=== PATIENT | female | born 1985 | race American Indian/Alaskan Native ===

== ENCOUNTER 2018-08-20 03:54 | Emergency (ER) | payer OTHER ==
--- NOTE | 2018-08-20 04:19 | Emergency Department Report ---
<JANN MADSEN - Last Filed: 08/20/18 04:14> ED Lower Extremity HPI - General Chief Complaint: Extremity Injury, Lower Stated Complaint: RT LEG PAIN AND HIP PAIN Time Seen by Provider: 08/20/18 04:14 Source: patient Mode of arrival: Ambulatory Limitations: No Limitations - History of Present Illness Initial Comments: This is a 33-year-old -[place] female who presents with right hip pain that is radiating down leg since yesterday. Patient reports pain has increased over the past 24 hours. She reports pain is worse with walking or movement. Patient reports pain is 7 out of 10 on pain scale and a burning sharp sensation. She states she has taken Motrin with no improvement of symptoms. She denies recent injury, numbness or tingling, swelling, paresthesias, warmth to the area, or bruising. MD Complaint: hip injury (right) Onset/Timin -: days(s) Injury: Hip: Right Type of Injury: unknown Place: home Severity: moderate Severity scale (0 -10): 7 Improves With: nothing Worsens With: weight bearing, movement Context: walking Associated Symptoms: able to partially bear weight, ambulatory Treatments Prior to Arrival: NSAIDS - Related Data Previous Rx's Medication Instructions Recorded Last Taken Type Ibuprofen [Motrin 800 MG tab] 800 mg PO Q8HR PRN #15 tablet 08/20/18 Unknown Rx Allergies Allergy/AdvReac Type Severity Reaction Status Date / Time No Known Allergies Allergy Verified 08/20/18 04:01 ED Review of Systems Constitutional: denies: chills, fever Respiratory: denies: cough, shortness of breath, wheezing Cardiovascular: denies: chest pain, palpitations Gastrointestinal: denies: abdominal pain, nausea, diarrhea Musculoskeletal: arthralgia (right hip pain). denies: back pain, joint swelling Skin: denies: rash, lesions Neurological: denies: headache, weakness, paresthesias Psychiatric: denies: anxiety, depression ED Past Medical Hx - Past Medical History Previous Medical History?: Yes Hx Hypertension: Yes - Surgical History Past Surgical History?: No - Social History Smoking Status: Never Smoker Substance Use Type: None - Medications Home Medications: Home Medications Medication Instructions Recorded Confirmed Last Taken Type Ibuprofen [Motrin 800 MG tab] 800 mg PO Q8HR PRN #15 tablet 08/20/18 Unknown Rx ED Physical Exam - General Limitations: No Limitations General appearance: alert, in no apparent distress, obese - Respiratory Respiratory exam: Present: normal lung sounds bilaterally. Absent: respiratory distress - Cardiovascular Cardiovascular Exam: Present: regular rate, normal rhythm. Absent: systolic murmur, diastolic murmur, rubs, gallop - GI/Abdominal GI/Abdominal exam: Present: soft, normal bowel sounds - Expanded Lower Extremity Exam Right Hip exam: Present: full ROM (pain with range of motion). Absent: tenderness, swelling, abrasion, laceration, ecchymosis, deformity, crepidus, dislocation, erythema, external rotation, internal rotation, shortening, pelvic stability Upper Leg exam: Present: normal inspection, full ROM Knee exam: Present: normal inspection, full ROM Lower Leg exam: Present: normal inspection, full ROM Foot/Toe exam: Present: normal inspection, full ROM Neuro vascular tendon exam: Present: no vascular compromise Gait: Positive: observed and limited by pain - Back Exam Back exam: Present: normal inspection - Neurological Exam Neurological exam: Present: alert, oriented X3 - Psychiatric Psychiatric exam: Present: normal affect, normal mood - Skin Skin exam: Present: warm, dry, intact, normal color. Absent: rash ED Disposition Clinical Impression: Strain of right hip adductor muscle Qualifiers: Encounter type: initial encounter Qualified Code(s): S76.011A - Strain of muscle, fascia and tendon of right hip, initial encounter Disposition: TO HOME OR SELFCARE Condition: Stable Instructions: Muscle Strain (ED) Additional Instructions: Please take pain medication as prescribed. Follow-up with her primary care provider if his symptoms persist or gets worse. Prescriptions: Ibuprofen [Motrin 800 MG tab] 800 mg PO Q8HR PRN #15 tablet PRN Reason: Pain , Severe (7-10) Referrals: Your, PCP [Other] - 3-5 Days <JAYLEEN HICKEY - Last Filed: 08/20/18 06:05> ED Lower Extremity HPI - History of Present Illness Initial Comments: Patient reports that she had increase exercising last week and started having hip pain yesterday. Patient denies any lower back pain denies any urinary symptoms. Patient does report she has a primary care provider at [place] [facility]. Patient reports that she took ibuprofen prior to arrival without much improvement. She denies any trauma. ED Review of Systems ROS: Stated complaint: RT LEG PAIN AND HIP PAIN Other details as noted in HPI ED Course Vital Signs 08/20/18 03:56 Temperature 97.8 F Pulse Rate 69 Respiratory 18 Rate Blood Pressure 130/82 O2 Sat by Pulse 100 Oximetry ED Lower Extremity MDM - Radiology Data Radiology results: report reviewed Patient: ALFONSO RNAGEL MR#: [id number] : 1985 Acct:[id number] Age/Sex: 33 / F ADM Date: 08/20/18 Loc: ED Attending Dr: Ordering Physician: NEGRA VALLE Date of Service: 08/20/18 Procedure(s): XR hip 2-3V RT Accession Number(s): [id number] cc: NEGRA VALLE Fluoro Time In Minutes: PROCEDURE: XR HIP 2-3V RT TECHNIQUE: Pelvis radiograph, one view. HISTORY: right hip pain COMPARISONS: None FINDINGS: Fracture(s): None Joint spaces: Normal Soft tissues: Normal Foreign bodies: None Bone mineralization: Normal IMPRESSION: Normal Examination This document is electronically signed by Silvia Morgan DO., August 20 2018 05:27:16 AM ET Transcribed By: [facility] Dictated By: SILVIA MORGAN MD Electronically Authenticated By: SILVIA MORGAN MD Signed Date/Time: 08/20/18 0570 Critical care attestation.: If time is entered above; I have spent that time in minutes in the direct care of this critically ill patient, excluding procedure time. ED Disposition Is pt being admited?: No Does the pt Need Aspirin: No
--- NOTE | 2018-08-20 05:29 | XRay Report ---
PROCEDURE: XR HIP 2-3V RT TECHNIQUE: Pelvis radiograph, one view. HISTORY: right hip pain COMPARISONS: None FINDINGS: Fracture(s): None Joint spaces: Normal Soft tissues: Normal Foreign bodies: None Bone mineralization: Normal IMPRESSION: Normal Examination This document is electronically signed by Silvia Morgan DO., August 20 2018 05:27:16 AM ET
[2018-08-20 05:59] VITALS: BP 113/70
== END 2018-08-20 06:06 | disposition home or self-care (01) ==
LOC: ED 03:54
DX: S76.011A Strain of muscle, fascia and tendon of right hip, initial encounter (principal); I10 Essential (primary) hypertension; X58.XXXA Exposure to other specified factors, initial encounter; Y93.89 Activity, other specified; Y92.009 Unspecified place in unspecified non-institutional (private) residence as the place of occurrence of the external cause; Y99.8 Other external cause status

== ENCOUNTER 2018-08-27 20:09 | Emergency (ER) | payer OTHER ==
[2018-08-27 21:14] LABS: Basophils # (Auto) 0.1 K/mm3 (0.0-0.1); Basophils % (Auto) 0.7 % (0.0-1.8); Eosinophils # (Auto) 0.1 K/mm3 (0.0-0.4); Eosinophils % (Auto) 0.7 % (0.0-4.3); Hematocrit 41.3 % (30.3-42.9); Hemoglobin 13.7 gm/dl (10.1-14.3); Lymphocytes # (Auto) 2.2 K/mm3 (1.2-5.4); Lymphocytes % (Auto) 27.8 % (13.4-35.0); Mean Corpuscular HGB Conc 33 % (30-34); Mean Corpuscular Volume 89 fl (79-97); Monocytes # (Auto) 0.4 K/mm3 (0.0-0.8); Platelet Count 342 K/mm3 (140-440); Red Blood Count 4.66 M/mm3 (3.65-5.03); Red Cell Distribution Width 14.3 % (13.2-15.2)
--- NOTE | 2018-08-27 23:13 | XRay Report ---
PROCEDURE: XR CHEST 1V AP TECHNIQUE: AP view of the chest HISTORY: Chest Pain COMPARISONS: None FINDINGS: Cardiomediastinal silhouette is within normal limits. No pulmonary infiltrate, effusion, or pneumotho rax is seen. No acute osseous abnormality is seen. IMPRESSION: No radiographic evidence of acute abnormality. This document is electronically signed by Katherine Ferrer MD., August 27 2018 11:11:24 PM ET
[2018-08-27 23:25] LABS: BUN/Creatinine Ratio 14; Blood Urea Nitrogen 15 mg/dL (7-17); Calcium 10.3 mg/dL (8.4-10.2); Hemolysis Index 7
--- NOTE | 2018-08-28 02:34 | Emergency Department Report ---
ED General Adult HPI - General Chief complaint: Dizziness Stated complaint: DIZZINESS/HIGH BP Time Seen by Provider: 08/28/18 02:26 Source: patient Mode of arrival: Ambulatory Limitations: No Limitations - History of Present Illness Initial comments: 33-year-old female with a history of hypertension presents with a complaint of dizziness. Patient denies any syncopal events. Patient denies any chest pain. Patient denies any focal weakness and slurred speech. Patient states her blood pressure was slightly elevated while at the fire station. Patient states he is noncompliant with her hydrochlorothiazide therapy. Severity scale (0 -10): 3 - Related Data Previous Rx's Medication Instructions Recorded Last Taken Type Ibuprofen [Motrin 800 MG tab] 800 mg PO Q8HR PRN #15 tablet 08/20/18 Unknown Rx Tramadol HCl [Ultram] 50 mg PO Q6HR #20 tablet 08/28/18 Unknown Rx Allergies Allergy/AdvReac Type Severity Reaction Status Date / Time No Known Allergies Allergy Verified 08/20/18 04:01 ED Review of Systems ROS: Stated complaint: DIZZINESS/HIGH BP Other details as noted in HPI Constitutional: denies: chills, fever Eyes: denies: eye pain, eye discharge, vision change ENT: denies: ear pain, throat pain Respiratory: denies: cough, shortness of breath, wheezing Cardiovascular: denies: chest pain, palpitations Endocrine: no symptoms reported Gastrointestinal: denies: abdominal pain, nausea, diarrhea Genitourinary: denies: urgency, dysuria, discharge Musculoskeletal: denies: back pain, joint swelling, arthralgia Skin: denies: rash, lesions Neurological: other (dizziness). denies: headache, weakness, paresthesias Psychiatric: denies: anxiety, depression Hematological/Lymphatic: denies: easy bleeding, easy bruising ED Past Medical Hx - Past Medical History Previous Medical History?: Yes Hx Hypertension: Yes - Surgical History Past Surgical History?: No - Social History Smoking Status: Never Smoker Substance Use Type: None - Medications Home Medications: Home Medications Medication Instructions Recorded Confirmed Last Taken Type Ibuprofen [Motrin 800 MG tab] 800 mg PO Q8HR PRN #15 tablet 08/20/18 Unknown Rx Tramadol HCl [Ultram] 50 mg PO Q6HR #20 tablet 08/28/18 Unknown Rx ED Physical Exam - General Limitations: No Limitations General appearance: alert, in no apparent distress - Head Head exam: Present: atraumatic, normocephalic - Eye Eye exam: Present: normal appearance - ENT ENT exam: Present: mucous membranes moist - Neck Neck exam: Present: normal inspection - Respiratory Respiratory exam: Present: normal lung sounds bilaterally. Absent: respiratory distress - Cardiovascular Cardiovascular Exam: Present: regular rate, normal rhythm. Absent: systolic murmur, diastolic murmur, rubs, gallop - GI/Abdominal GI/Abdominal exam: Present: soft, normal bowel sounds - Extremities Exam Extremities exam: Present: normal inspection - Back Exam Back exam: Present: normal inspection - Neurological Exam Neurological exam: Present: alert, oriented X3 - Psychiatric Psychiatric exam: Present: normal affect, normal mood - Skin Skin exam: Present: warm, dry, intact, normal color. Absent: rash ED Course Vital Signs 08/27/18 08/27/18 23:02 23:04 Pulse Rate 63 Respiratory 18 16 Rate Blood Pressure 144/64 [Left] O2 Sat by Pulse 98 98 Oximetry ED Medical Decision Making - Lab Data Result diagrams: 08/27/18 20:42 08/27/18 22:09 - EKG Data -: EKG Interpreted by Nv EKG shows normal: sinus rhythm Rate: normal - Medical Decision Making Patient's blood pressure has improved. Patient's and upright comfortable. Patient received Tylenol for headache. Patient to be discharged to follow up with PCP. - Differential Diagnosis STEMI; NSTEMI; electrolyte imbalance;anemia; ppneumonai Critical care attestation.: If time is entered above; I have spent that time in minutes in the direct care of this critically ill patient, excluding procedure time. ED Disposition Clinical Impression: Dizziness, Hypertension Disposition: DC-01 TO HOME OR SELFCARE Is pt being admited?: No Does the pt Need Aspirin: No Condition: Stable Instructions: Hypertension (ED) Prescriptions: Tramadol HCl [Ultram] 50 mg PO Q6HR #20 tablet Referrals: KENYATAT MCKAY MD [Primary Care Provider] - 3-5 Days Time of Disposition: 03:14 Print Language: SYRIAC
[2018-08-28] MEDS ORDERED: TYLENOL PO ONE (02:42)
[2018-08-28 03:51] VITALS: BP 136/85
== END 2018-08-28 03:49 | disposition home or self-care (01) ==
LOC: ED 20:09
DX: I10 Essential (primary) hypertension (principal)
CPT/HCPCS: 36415; 71045; 80048; 84484; 85025; 93005; 93010

== ENCOUNTER 2018-09-05 21:39 | Emergency (ER) | payer OTHER ==
[2018-09-05 23:02] LABS: Basophils # (Auto) 0.1 K/mm3 (0.0-0.1); Eosinophils % (Auto) 0.4 % (0.0-4.3); Hematocrit 38.5 % (30.3-42.9); Hemoglobin 13.3 gm/dl (10.1-14.3); Lymphocytes # (Auto) 2.2 K/mm3 (1.2-5.4); Lymphocytes % (Auto) 26.5 % (13.4-35.0); Mean Corpuscular HGB Conc 35 % (30-34); Mean Corpuscular Volume 87 fl (79-97); Monocytes # (Auto) 0.4 K/mm3 (0.0-0.8); Monocytes % (Auto) 5.1 % (0.0-7.3); Platelet Count 351 K/mm3 (140-440); Red Blood Count 4.44 M/mm3 (3.65-5.03); Red Cell Distribution Width 14.1 % (13.2-15.2)
[2018-09-05 23:14] LABS: BUN/Creatinine Ratio 14; Blood Urea Nitrogen 14 mg/dL (7-17); Calcium 9.9 mg/dL (8.4-10.2); Hemolysis Index 8
--- NOTE | 2018-09-06 01:43 | Emergency Department Report ---
ED Chest Pain HPI - General Chief Complaint: Chest Pain Stated Complaint: ?BLOOD PRESSURE/FATIGUE/CHEST HEAVY Time Seen by Provider: 09/06/18 01:26 Source: patient Mode of arrival: Ambulatory Limitations: No Limitations - History of Present Illness Initial Comments: Pt is a 33 yo female who presents to the ED with c/o chest heaviness that began yesterday. She has associated SOB and palpitations. She was diagnosed with anxiety two weeks ago by her PCP and was given vistaril she states that she does not like to take it. She states these sx feel similar to her anxiety. She denies any N/V, radiation of the pain, unilateral LE edema. She has a hx of HTN and takes hctz. She denies any hx of smoking, cardiac hx, or hx of DM. She denies any family cardiac hx. She denies any OCP use, long car or plane ride, recent surgery, recent immobilization. She denies any hx of GERD. Severity scale (0 -10): 7 - Related Data Previous Rx's Medication Instructions Recorded Last Taken Type hydrOXYzine PAMOATE [Vistaril] 25 mg PO Q6HR PRN #20 capsule 09/02/18 Unknown Rx Allergies Allergy/AdvReac Type Severity Reaction Status Date / Time No Known Allergies Allergy Verified 08/20/18 04:01 Heart Score - HEART Score History: Slightly suspicious EKG: Normal Age: < 45 Risk factors: 1-2 risk factors Troponin: < normal limit HEART Score: 1 ED Review of Systems ROS: Stated complaint: ?BLOOD PRESSURE/FATIGUE/CHEST HEAVY Other details as noted in HPI Comment: All other systems reviewed and negative ED Past Medical Hx - Past Medical History Previous Medical History?: Yes Hx Hypertension: Yes - Surgical History Past Surgical History?: Yes Additional Surgical History: Tubal ligation - Social History Smoking Status: Never Smoker Substance Use Type: None - Medications Home Medications: Home Medications Medication Instructions Recorded Confirmed Last Taken Type hydrOXYzine PAMOATE [Vistaril] 25 mg PO Q6HR PRN #20 capsule 09/02/18 Unknown Rx ED Physical Exam - General Limitations: No Limitations General appearance: alert, in no apparent distress - Head Head exam: Present: atraumatic, normocephalic - Eye Eye exam: Present: normal appearance - ENT ENT exam: Present: mucous membranes moist - Respiratory Respiratory exam: Present: normal lung sounds bilaterally. Absent: respiratory distress, wheezes, rales, rhonchi, stridor, chest wall tenderness, accessory muscle use, decreased breath sounds, prolonged expiratory - Cardiovascular Cardiovascular Exam: Present: regular rate, normal rhythm, normal heart sounds. Absent: systolic murmur, rubs, gallop - Neurological Exam Neurological exam: Present: alert, oriented X3 - Psychiatric Psychiatric exam: Present: normal affect, anxious (mildly ) - Skin Skin exam: Present: warm, dry, intact ED Course Vital Signs 09/05/18 09/05/18 09/05/18 21:47 21:53 22:31 Temperature 97.6 F 98 F Pulse Rate 92 H 94 H Respiratory 18 18 Rate Blood Pressure 136/93 114/84 Blood Pressure [Left] O2 Sat by Pulse 100 100 Oximetry 09/06/18 09/06/18 03:00 03:08 Temperature Pulse Rate 77 90 Respiratory 15 18 Rate Blood Pressure Blood Pressure 128/91 [Left] O2 Sat by Pulse 99 100 Oximetry ELBERT score - Elbert Score Age > 65: (0) No Aspirin use within the Past 7 Days: (0) No 3 or more CAD Risk Factors: (0) No 2 or more Angina events in past 24 hrs: (0) No Known CAD with more than 50% Stenosis: (0) No Elevated Cardiac Markers: (0) No ST Deviation Greater than 0.5mm: (0) No ELBERT Score: 0 ED Medical Decision Making - Lab Data Result diagrams: 09/05/18 22:41 09/05/18 22:41 Lab Results 09/05/18 09/05/18 09/05/18 Range/Units 22:41 22:41 22:41 WBC 8.1 (4.5-11.0) K/mm3 RBC 4.44 (3.65-5.03) M/mm3 Hgb 13.3 (10.1-14.3) gm/dl Hct 38.5 (30.3-42.9) % MCV 87 (79-97) fl MCH 30 (28-32) pg MCHC 35 H (30-34) % RDW 14.1 (13.2-15.2) % Plt Count 351 (140-440) K/mm3 Lymph % (Auto) 26.5 (13.4-35.0) % Dickinson % (Auto) 5.1 (0.0-7.3) % Eos % (Auto) 0.4 (0.0-4.3) % Baso % (Auto) 1.0 (0.0-1.8) % Lymph # 2.2 (1.2-5.4) K/mm3 Dickinson # 0.4 (0.0-0.8) K/mm3 Eos # 0.0 (0.0-0.4) K/mm3 Baso # 0.1 (0.0-0.1) K/mm3 Seg Neutrophils % 67.0 (40.0-70.0) % Seg Neutrophils # 5.5 (1.8-7.7) K/mm3 Sodium 135 L (137-145) mmol/L Potassium 3.7 (3.6-5.0) mmol/L Chloride 95.5 L (98-107) mmol/L Carbon Dioxide 24 (22-30) mmol/L Anion Gap 19 mmol/L BUN 14 (7-17) mg/dL Creatinine 1.0 (0.7-1.2) mg/dL Estimated GFR > 60 ml/min BUN/Creatinine Ratio 14 % Glucose 97 (65-100) mg/dL Calcium 9.9 (8.4-10.2) mg/dL Troponin T < 0.010 (0.00-0.029) ng/mL HCG, Qual Negative (Negative) - EKG Data -: EKG Interpreted by Ma EKG shows normal: sinus rhythm, axis, intervals, QRS complexes, ST-T waves Rate: normal - Radiology Data Radiology results: report reviewed PROCEDURE: XR CHEST ROUTINE 2V TECHNIQUE: PA and lateral chest radiographs were obtained. HISTORY: cp COMPARISONS: August 27, 2018. FINDINGS: Heart: Normal. Mediastinum/Vessels: Normal. Lungs/Pleural space: Normal. Bony thorax: No acute osseous abnormality. IMPRESSION: Normal examination. This document is electronically signed by Silvia Morgan DO., September 06 2018 02:35:08 AM ET - Medical Decision Making Pt is a 33 yo female who presents to the ED with c/o chest heaviness that began yesterday. She has associated SOB and palpitations. She was diagnosed with anxiety two weeks ago by her PCP and was given vistaril she states that she does not like to take it. She states these sx feel similar to her anxiety. She denies any N/V, radiation of the pain, unilateral LE edema. She has a hx of HTN and takes hctz. She denies any hx of smoking, cardiac hx, or hx of DM. She denies any family cardiac hx. She denies any OCP use, long car or plane ride, recent surgery, recent immobilization. She denies any hx of GERD. EKG is normal. CXR with no acute process. Trop negative x2. VSS. CP does not appear to be cardiac in nature. pt only cardiac risk factor is HTN. no PE/DVT risk factors. Symptoms appear to be consistent with her anxiety. Advised pt to follow up with her PCP for further management of her anxiety and adjustement of her medications. Discussed return to the ED for any new or worsening symptoms. - Differential Diagnosis anxiety, GERD, SC, PTX, costochondritis, musculoskeletal pain Critical care attestation.: If time is entered above; I have spent that time in minutes in the direct care of this critically ill patient, excluding procedure time. ED Disposition Clinical Impression: Anxiety Disposition: DC-01 TO HOME OR SELFCARE Is pt being admited?: No Does the pt Need Aspirin: No Condition: Stable Instructions: Anxiety (ED) Additional Instructions: Follow up with your primary care doctor in the next 2-3 days to discuss your anxiety medication. Return to the emergency room for any new or worsening symptoms. Referrals: KENYATTA MCKAY MD [Primary Care Provider] - 2-3 Days Time of Disposition: 02:53 Print Language: DIVEHI
--- NOTE | 2018-09-06 02:36 | XRay Report ---
PROCEDURE: XR CHEST ROUTINE 2V TECHNIQUE: PA and lateral chest radiographs were obtained. HISTORY: cp COMPARISONS: August 27, 2018. FINDINGS: Heart: Normal. Mediastinum/Vessels: Normal. Lungs/Pleural space: Normal. Bony thorax: No acute osseous abnormality. IMPRESSION: Normal examination. This document is electronically signed by Silvia Morgan DO., September 06 2018 02:35:08 AM ET
[2018-09-06] MEDS ORDERED: TYLENOL PO ONE (02:51)
[2018-09-06 03:10] VITALS: BP 128/91
== END 2018-09-06 03:00 | disposition home or self-care (01) ==
LOC: ED 21:39
DX: F41.9 Anxiety disorder, unspecified (principal); I10 Essential (primary) hypertension; Z98.51 Tubal ligation status
CPT/HCPCS: 36415; 71046; 80048; 84484; 84703; 85025; 93005; 93010

== ENCOUNTER 2018-09-23 20:54 | Emergency (ER) | payer OTHER ==
[2018-09-24 19:46] VITALS: BP 117/76
== END 2018-09-23 21:20 | disposition left against medical advice (07) ==
LOC: ED 20:54
DX: R06.02 Shortness of breath (principal); Z53.21 Procedure and treatment not carried out due to patient leaving prior to being seen by health care provider
CPT/HCPCS: 93005; 93010

== ENCOUNTER 2018-10-06 21:50 | Emergency (ER) | payer SELFPAY ==
[2018-10-06 21:58] VITALS: BP 117/85
--- NOTE | 2018-10-06 22:05 | Emergency Department Report ---
Blank Doc - Documentation Documentation: 33 y/o female comes in for headache for 2 hours. Went to the fire station and had blood pressure check was reported high. Hx/o of HTN on HCTZ 25 mg daily.
== END 2018-10-07 03:12 | disposition left against medical advice (07) ==
LOC: ED 21:50
DX: R42 Dizziness and giddiness (principal); Z53.21 Procedure and treatment not carried out due to patient leaving prior to being seen by health care provider

== ENCOUNTER 2018-10-14 22:39 | Emergency (ER) | payer OTHER ==
[2018-10-14 22:47] VITALS: BP 112/75
[2018-10-14 23:50] LABS: Basophils % (Auto) 0.5 % (0.0-1.8); Eosinophils # (Auto) 0.1 K/mm3 (0.0-0.4); Eosinophils % (Auto) 0.7 % (0.0-4.3); Hematocrit 36.5 % (30.3-42.9); Hemoglobin 12.2 gm/dl (10.1-14.3); Lymphocytes # (Auto) 2.2 K/mm3 (1.2-5.4); Lymphocytes % (Auto) 30.3 % (13.4-35.0); Mean Corpuscular HGB Conc 33 % (30-34); Mean Corpuscular Volume 88 fl (79-97); Monocytes # (Auto) 0.5 K/mm3 (0.0-0.8); Monocytes % (Auto) 6.6 % (0.0-7.3); Platelet Count 357 K/mm3 (140-440); Red Blood Count 4.14 M/mm3 (3.65-5.03); Red Cell Distribution Width 14.9 % (13.2-15.2)
[2018-10-15 00:14] LABS: Blood Urea Nitrogen 20 mg/dL (7-17); Calcium 9.6 mg/dL (8.4-10.2); Hemolysis Index 13
[2018-10-15 00:22] LABS: BUN/Creatinine Ratio 22
== END 2018-10-15 01:50 | disposition left against medical advice (07) ==
LOC: ED 22:39
DX: R06.02 Shortness of breath (principal); Z53.21 Procedure and treatment not carried out due to patient leaving prior to being seen by health care provider
CPT/HCPCS: 36415; 80048; 84484; 84703; 85025; 93005; 93010

== ENCOUNTER 2018-10-15 15:22 | Emergency (ER) | payer SELFPAY ==
[2018-10-15 16:17] VITALS: BP 110/74
--- NOTE | 2018-10-15 16:20 | Emergency Department Report ---
Chief Complaint: Chest Pain Stated Complaint: CHEST PAIN/SOB Time Seen by Provider: 10/15/18 16:15 - HPI History of Present Illness: co cp as she points to her epigastric area 8th time here in ER this year for similar has pcp pmh anxiety on celexa sees pcp in am for ultrasound of cyst behind leg and red clifford on feet see labs from prior visits no periods- tubal 06/29 lmp sees fertility MD for estrogen and prog. she stopped them in may mse completed MSE screening note: Focused history and physical exam performed. Due to findings the following was ordered: ED Disposition for MSE Condition: Stable
== END 2018-10-15 16:30 | disposition left against medical advice (07) ==
LOC: ED 15:22
DX: R07.89 Other chest pain (principal); R06.02 Shortness of breath; Z53.21 Procedure and treatment not carried out due to patient leaving prior to being seen by health care provider
CPT/HCPCS: 93005; 93010

== ENCOUNTER 2018-10-21 18:57 | Emergency (ER) | payer OTHER ==
[2018-10-21 19:21] VITALS: BP 122/78
--- NOTE | 2018-10-21 20:04 | Emergency Department Report ---
ED General Adult HPI - General Stated complaint: WEAKNESS Time Seen by Provider: 10/21/18 20:00 Source: patient, EMS Mode of arrival: Ambulatory Limitations: No Limitations - History of Present Illness Initial comments: pt is a 33-year-old -[place] female with history of depression on Celexa states she takes 10 mg today however she took one earlier this morning and felt that she took an Ativan 2 hours later then began to feel weakness and fatigue there is no nausea vomiting no dizziness no lightheadedness patient did not have a syncopal episode patient is alert and oriented at this time patient is in with her mentation is at baseline just wanted to come and get checked out patient denies weakness denies vomiting denies chest pain or shortness of breath no diaphoresis no, Onset/Timin -: days(s) Radiation: non-radiation Severity scale (0 -10): 2 Quality: other (generalized weakness ) Consistency: constant Improves with: none, rest Worsens with: none Associated Symptoms: weakness. denies: chest pain, cough, diaphoresis, fever/chills, headaches, loss of appetite, malaise, nausea/vomiting, rash, seizure, shortness of breath, syncope Treatments Prior to Arrival: none - Related Data Previous Rx's Medication Instructions Recorded Last Taken Type hydrOXYzine PAMOATE [Vistaril] 25 mg PO Q6HR PRN #20 capsule 09/02/18 Unknown Rx diphenhydrAMINE [Benadryl CAP] 25 mg PO Q6HR PRN #30 capsule 10/21/18 Unknown Rx Allergies Allergy/AdvReac Type Severity Reaction Status Date / Time No Known Allergies Allergy Verified 10/15/18 15:24 ED Review of Systems ROS: Stated complaint: WEAKNESS Other details as noted in HPI Constitutional: denies: chills, fever Eyes: denies: eye pain, eye discharge, vision change ENT: denies: ear pain, throat pain, dental pain, hearing loss, epistaxis, congestion Respiratory: see HPI, SOB with exertion. denies: cough, shortness of breath, wheezing Cardiovascular: denies: chest pain, palpitations, dyspnea on exertion, paroxy smal nocturnal dyspnea Endocrine: no symptoms reported Gastrointestinal: denies: abdominal pain, nausea, vomiting, diarrhea, constipation, hematemesis Genitourinary: denies: urgency, dysuria, frequency, hematuria, discharge, dyspareunia Musculoskeletal: denies: back pain, joint swelling, arthralgia, myalgia Skin: denies: rash, lesions, pruritus Neurological: weakness. denies: headache, numbness, paresthesias, confusion, abnormal gait, vertigo Psychiatric: as per HPI, anxiety Hematological/Lymphatic: denies: easy bleeding, easy bruising ED Past Medical Hx - Past Medical History Hx Hypertension: Yes - Surgical History Additional Surgical History: Tubal ligation - Social History Smoking Status: Never Smoker - Medications Home Medications: Home Medications Medication Instructions Recorded Confirmed Last Taken Type hydrOXYzine PAMOATE [Vistaril] 25 mg PO Q6HR PRN #20 capsule 09/02/18 Unknown Rx diphenhydrAMINE [Benadryl CAP] 25 mg PO Q6HR PRN #30 capsule 10/21/18 Unknown Rx ED Physical Exam - General Limitations: No Limitations General appearance: alert, in no apparent distress - Head Head exam: Present: atraumatic, normocephalic, normal inspection - Eye Eye exam: Present: normal appearance, PERRL, EOMI. Absent: conjunctival injection Pupils: Present: normal accommodation - ENT ENT exam: Present: normal orophraynx, mucous membranes moist, TM's normal bilaterally, normal external ear exam - Neck Neck exam: Present: normal inspection, tenderness, full ROM. Absent: meningismus, lymphadenopathy, thyromegaly - Expanded Neck Exam Expanded Neck exam: Absent: tenderness, midline deformity, anterior neck swelling, thyroid mass, carotid bruit, tracheal deviation - Respiratory Respiratory exam: Absent: respiratory distress, wheezes, stridor, chest wall tenderness - Cardiovascular Cardiovascular Exam: Present: regular rate, normal rhythm, normal heart sounds. Absent: systolic murmur, diastolic murmur, rubs, gallop - GI/Abdominal GI/Abdominal exam: Present: soft. Absent: distended, tenderness, guarding, bruit, hernia - Rectal Rectal exam: Absent: deferred - Extremities Exam Extremities exam: Present: normal inspection, full ROM, normal capillary refill. Absent: tenderness, pedal edema, joint swelling, calf tenderness - Back Exam Back exam: Present: normal inspection, full ROM. Absent: tenderness, CVA tend erness (R), CVA tenderness (L), muscle spasm, paraspinal tenderness, vertebral tenderness, rash noted - Expanded Back Exam Expanded Back exam: Absent: saddle anesthesia Back exam: Negative Straight Leg Raising: Left, Right - Neurological Exam Neurological exam: Present: alert, oriented X3, CN II-XII intact, normal gait, abnormal gait. Absent: motor sensory deficit - Psychiatric Psychiatric exam: Present: normal affect, normal mood. Absent: homicidal ideation, suicidal ideation - Skin Skin exam: Present: warm, dry, intact, normal color. Absent: rash ED Course Vital Signs 10/21/18 10/21/18 19:14 19:18 Temperature 98.8 F 97.2 F L Pulse Rate 76 77 Respiratory 18 18 Rate Blood Pressure 122/78 122/78 O2 Sat by Pulse 100 100 Oximetry ED Medical Decision Making - Lab Data Result diagrams: 10/21/18 20:09 10/21/18 20:09 - Medical Decision Making pt alert and oriented at this time. Patient denies weakness no dizziness no lightheadedness no nausea vomiting patient examined her entire ED without symptoms exam is unremarkable CII- CXII are grossly intact gait is stable extremities 55 range of motion is intact without restriction patient is nothing by mouth intake without nausea vomiting patient does not appear she appears non toxic and well-hydrated well-nourished plan follow up PCP Dr. Razo tomorrow take medications as prescribed and return to emergency department if symptoms worsen patient verbalizes agreement and understanding of discharge plan patient DC'd to home in stable condition at this time. Critical care attestation.: If time is entered above; I have spent that time in minutes in the direct care of this critically ill patient, excluding procedure time. ED Disposition Clinical Impression: Dizziness Disposition: DC-01 TO HOME OR SELFCARE Is pt being admited?: No Does the pt Need Aspirin: No Condition: Stable Instructions: Citalopram (By mouth) Prescriptions: diphenhydrAMINE [Benadryl CAP] 25 mg PO Q6HR PRN #30 capsule PRN Reason: prn dizziness Referrals: SAUD BRAUN MD [Primary Care Provider] - 24 Hours Forms: Work/School Release Form(ED) Time of Disposition: 00:11
[2018-10-21 20:43] LABS: Basophils % (Auto) 0.5 % (0.0-1.8); Eosinophils % (Auto) 0.3 % (0.0-4.3); Hematocrit 34.1 % (30.3-42.9); Hemoglobin 11.6 gm/dl (10.1-14.3); Lymphocytes # (Auto) 1.6 K/mm3 (1.2-5.4); Lymphocytes % (Auto) 21.5 % (13.4-35.0); Mean Corpuscular HGB Conc 34 % (30-34); Mean Corpuscular Volume 90 fl (79-97); Monocytes # (Auto) 0.5 K/mm3 (0.0-0.8); Monocytes % (Auto) 6.1 % (0.0-7.3); Platelet Count 327 K/mm3 (140-440); Red Blood Count 3.81 M/mm3 (3.65-5.03); Red Cell Distribution Width 14.5 % (13.2-15.2)
[2018-10-21 21:02] LABS: Alanine Aminotransferase 20 units/L (7-56); Albumin 4.1 g/dL (3.9-5); BUN/Creatinine Ratio 11; Blood Urea Nitrogen 10 mg/dL (7-17); Calcium 9.2 mg/dL (8.4-10.2); Hemolysis Index 8
[2018-10-21 22:02] LABS: Bilirubin,Urine NEG (Negative); Blood,Urine NEG (Negative); Color,Urine Yellow (Yellow); Protein,Urine <15 mg/dL mg/dL (Negative)
[2018-10-21 22:06] LABS: HCG Qualitative,Urine Negative (Negative)
== END 2018-10-22 00:15 | disposition home or self-care (01) ==
LOC: ED 18:57
DX: R53.1 Weakness (principal); R53.83 Other fatigue; R42 Dizziness and giddiness; I10 Essential (primary) hypertension; Z98.51 Tubal ligation status
CPT/HCPCS: 36415; 80053; 81001; 81025; 85025

== ENCOUNTER 2018-10-22 00:54 | Emergency (ER) | payer SELFPAY ==
[2018-10-22 01:13] VITALS: BP 111/76
== END 2018-10-22 04:00 | disposition left against medical advice (07) ==
LOC: ED 00:54
DX: R00.2 Palpitations (principal); Z53.21 Procedure and treatment not carried out due to patient leaving prior to being seen by health care provider
CPT/HCPCS: 93005; 93010

== ENCOUNTER 2018-10-24 21:53 | Emergency (ER) | payer SELFPAY ==
[2018-10-24 22:01] VITALS: BP 113/69
--- NOTE | 2018-10-24 22:02 | Emergency Department Report ---
Chief Complaint: Headache Stated Complaint: HEADACHE, CHEST PAIN Time Seen by Provider: 10/24/18 22:01 - HPI History of Present Illness: HEADACHE BP NORMAL PMH HTN ON MEDS NO TRAUMA NEURO INTACT AMBULATORY TAKING PO NO HX MIGRAINES NO N/V/PHOTOPHOBIA NO FEVER MSE COMPLETED - Exam Vital Signs: Vital Signs 10/24/18 21:57 Temperature 97.9 F Pulse Rate 95 H Respiratory 18 Rate Blood Pressure 113/69 O2 Sat by Pulse 99 Oximetry MSE screening note: Focused history and physical exam performed. Due to findings the following was ordered: ED Disposition for MSE Condition: Stable
[2018-10-24] MEDS ORDERED: BENADRYL IV ONE (22:55)
[2018-10-24] MEDS ORDERED: TORADOL IV ONE (22:55)
[2018-10-24] MEDS ORDERED: REGLAN IV ONE (22:55)
--- NOTE | 2018-10-24 22:59 | Emergency Department Report ---
ED Headache HPI - General Chief Complaint: Headache Stated Complaint: HEADACHE, CHEST PAIN Time Seen by Provider: 10/24/18 22:01 - History of Present Illness Initial Comments: 33-year-old -[place] female reports to the emergency room stating she is started having a headache today. Patient reports a past medical history of hypertension and anxiety. Patient does admit to nausea no vomiting but does have photophobia. Patient has no history of headaches. Patient states she has tried [id number] Goody powders in a Toradol by mouth by mouth approximately 1700. Patient denies any head trauma. Patient's last menstrual period was 10/23/2018. She is currently on lisinopril hydrochlorothiazide. Quality: moderate Recent Head Trauma: no recent headache/trauma Associated Symptoms: nausea/vomiting (nausea no vomiting). denies: facial pain, fever/chills, nasal congestion, nasal drainage, sinus infection, stiff neck Allergies/Adverse Reactions: Allergies No Known Allergies Allergy (Verified 10/15/18 15:24) Home Medications: Ambulatory Orders hydrOXYzine PAMOATE [Vistaril] 25 mg PO Q6HR PRN #20 capsule 09/02/18 diphenhydrAMINE [Benadryl CAP] 25 mg PO Q6HR PRN #30 capsule 10/21/18 Ibuprofen [Motrin 800 MG tab] 800 mg PO Q8HR PRN #15 tablet 10/24/18 ED Review of Systems ROS: Stated complaint: HEADACHE, CHEST PAIN Other details as noted in HPI Comment: All other systems reviewed and negative Constitutional: denies: chills, fever Gastrointestinal: nausea. denies: vomiting Neurological: headache ED Past Medical Hx - Past Medical History Previous Medical History?: Yes Hx Hypertension: Yes Hx Psychiatric Treatment: Yes (anxiety) - Surgical History Past Surgical History?: No Additional Surgical History: Tubal ligation - Social History Smoking Status: Never Smoker Substance Use Type: None - Medications Home Medications: Home Medications Medication Instructions Recorded Confirmed Last Taken Type hydrOXYzine PAMOATE [Vistaril] 25 mg PO Q6HR PRN #20 capsule 09/02/18 Unknown Rx diphenhydrAMINE [Benadryl CAP] 25 mg PO Q6HR PRN #30 capsule 10/21/18 Unknown Rx Ibuprofen [Motrin 800 MG tab] 800 mg PO Q8HR PRN #15 tablet 10/24/18 Unknown Rx ED Physical Exam - General Limitations: No Limitations General appearance: alert, in no apparent distress - Head Head exam: Present: atraumatic, normocephalic - Eye Eye exam: Present: normal appearance - ENT ENT exam: Present: mucous membranes moist - Neck Neck exam: Present: normal inspection, full ROM - Respiratory Respiratory exam: Present: normal lung sounds bilaterally. Absent: respiratory distress - Cardiovascular Cardiovascular Exam: Present: regular rate, normal rhythm. Absent: systolic murmur, diastolic murmur, rubs, gallop - Expanded Neurological Exam Expanded Patient oriented to: Present: person, place, time Cranial nerves: EOM's Intact: Normal, Gag Reflex: Normal, Tongue Deviation: Normal, Nystagmus: Normal, Facial Sensation: Normal, Facial Palsy with Forehead Movement: Normal, Facial Palsy without Forehead Movement: Normal Cerebellar function: Finger to Nose: Normal, Heel to Mantilla: Normal, Romberg: Normal Upper motor neuron: Get Neglect: Normal, Pronator Drift: Normal, Babinski Sign: Normal, Sensory Extinction: Normal Sensory exam: Upper Extremity Light Touch: Normal, Upper Extremity Pin Prick: Normal, Upper Extremity Temperature: Normal, UE 2 Point Discrimination: Normal, Lower Extremity Light Touch: Normal, Lower Extremity Pin Prick: Normal Motor strength exam: RUE: 4, LUE: 4, RLE: 4, LLE: 4 Best Eye Response (Soso): (4) open spontaneously Best Motor Response (Jose): (6) obeys commands Best Verbal Response (Jose): (5) oriented Soso Total: 15 - Psychiatric Psychiatric exam: Present: normal affect, normal mood - Skin Skin exam: Present: warm, dry, intact, normal color. Absent: rash ED Course Vital Signs 10/24/18 21:57 Temperature 97.9 F Pulse Rate 95 H Respiratory 18 Rate Blood Pressure 113/69 O2 Sat by Pulse 99 Oximetry ED Medical Decision Making - Medical Decision Making Patient has been evaluated for this in [facility]. Patient be given IV insertion with Benadryl, Reglan and Toradol. She has no neural deficits. Critical care attestation.: If time is entered above; I have spent that time in minutes in the direct care of this critically ill patient, excluding procedure time. ED Disposition Clinical Impression: Head ache Qualifiers: Headache type: unspecified Headache chronicity pattern: acute headache Intractability: intractable Qualified Code(s): R51 - Headache Disposition: DC-01 TO HOME OR SELFCARE Is pt being admited?: No Does the pt Need Aspirin: No Condition: Stable Instructions: Acute Headache (ED) Additional Instructions: Medication as prescribed. All of which her primary care provider continued to have headaches. Prescriptions: Ibuprofen [Motrin 800 MG tab] 800 mg PO Q8HR PRN #15 tablet PRN Reason: Pain , Severe (7-10) Referrals: KENYATTA MCKAY MD [Primary Care Provider] - 3-5 Days Forms: Work/School Release Form(ED)
[2018-10-24] MEDS ORDERED: REGLAN PO ONE (23:27)
[2018-10-24] MEDS ORDERED: IBUPROFEN PO ONE ×2 (23:27→23:30)
[2018-10-24] MEDS ORDERED: REGLAN ONE (23:30)
[2018-10-25] MEDS ORDERED: DELTASONE PO ONE (00:15)
== END 2018-10-25 00:15 | disposition home or self-care (01) ==
LOC: ED 21:53
DX: R51 Headache (principal); F41.9 Anxiety disorder, unspecified; I10 Essential (primary) hypertension; Z98.51 Tubal ligation status
CPT/HCPCS: 99282; J7512; J1200; J1885; J2765

== ENCOUNTER 2018-11-09 20:39 | Emergency (ER) | payer OTHER ==
--- NOTE | 2018-11-09 21:11 | Emergency Department Report ---
Blank Doc - Documentation Documentation: 33 y o female presents with rapid hearttbeat at rest intermittently x 2months also cc of left sided leg tigling sensation x today. labs acc eval
[2018-11-09 21:36] LABS: Basophils # (Auto) 0.1 K/mm3 (0.0-0.1); Basophils % (Auto) 0.9 % (0.0-1.8); Eosinophils % (Auto) 0.7 % (0.0-4.3); Hematocrit 33.3 % (30.3-42.9); Hemoglobin 11.4 gm/dl (10.1-14.3); Lymphocytes # (Auto) 2.1 K/mm3 (1.2-5.4); Lymphocytes % (Auto) 33.2 % (13.4-35.0); Mean Corpuscular HGB Conc 34 % (30-34); Mean Corpuscular Volume 89 fl (79-97); Monocytes # (Auto) 0.3 K/mm3 (0.0-0.8); Monocytes % (Auto) 5.2 % (0.0-7.3); Platelet Count 321 K/mm3 (140-440); Red Blood Count 3.74 M/mm3 (3.65-5.03); Red Cell Distribution Width 14.9 % (13.2-15.2)
[2018-11-09 21:46] LABS: BUN/Creatinine Ratio 14; Blood Urea Nitrogen 13 mg/dL (7-17); Calcium 9.2 mg/dL (8.4-10.2); Hemolysis Index 0
[2018-11-09] MEDS ORDERED: LIDOCAINE VISCOUS 2% PO ONE (23:29)
[2018-11-09] MEDS ORDERED: ALUM-MAG HYDROX-SIMETH 200-200-20MG/5ML PO ONE (23:29)
[2018-11-09] MEDS ORDERED: BENTYL PO ONE (23:29)
--- NOTE | 2018-11-09 23:56 | XRay Report ---
PROCEDURE: XR CHEST ROUTINE 2V TECHNIQUE: PA and lateral chest radiographs were obtained. HISTORY: chest heaviness COMPARISONS: 09/06/2018. FINDINGS: Heart: Normal. Mediastinum/Vessels: Normal. Lungs/Pleural space: Normal. Bony thorax: No acute osseous abnormality. IMPRESSION: Normal examination. This document is electronically signed by Meño Jeffries MD., November 10 2018 12:55:04 AM ET
--- NOTE | 2018-11-10 00:34 | Emergency Department Report ---
ED General Adult HPI - General Chief complaint: Dyspnea/Respdistress Stated complaint: SOB, RAPID HEART BEAT Time Seen by Provider: 11/09/18 21:07 Source: patient Mode of arrival: Ambulatory Limitations: No Limitations - History of Present Illness Initial comments: Pt is a 33 yo female who presents to ED with c/o chest heaviness that began two to three months ago. She states yesterday she began to feel like she was having a rapid heart beat. she denies any SOB, LE edema, recent long or plane ride, recent surgery, recent OCP use, urinary sx, V/D, fever, or cough. she denies any heavy lifting. she states she has had increased belching and had a burning sensation. she denies any PMHx. she denies any personal or family hx of cardiac issues or DVT/PE. - Related Data Previous Rx's Medication Instructions Recorded Last Taken Type hydrOXYzine PAMOATE [Vistaril] 25 mg PO Q6HR PRN #20 capsule 09/02/18 Unknown Rx diphenhydrAMINE [Benadryl CAP] 25 mg PO Q6HR PRN #30 capsule 10/21/18 Unknown Rx Ibuprofen [Motrin 800 MG tab] 800 mg PO Q8HR PRN #15 tablet 10/24/18 Unknown Rx Famotidine [Pepcid] 20 mg PO DAILY #14 tablet 11/10/18 Unknown Rx Amoxicillin/Potassium Clav 1 each PO Q12H #20 tablet 11/12/18 Unknown Rx [Augmentin 875-125 Tablet] Ibuprofen [Motrin] 800 mg PO Q8HR PRN #20 tablet 11/12/18 Unknown Rx hydrOXYzine PAMOATE [Vistaril] 50 mg PO Q8H PRN #30 capsule 11/12/18 Unknown Rx Allergies Allergy/AdvReac Type Severity Reaction Status Date / Time No Known Allergies Allergy Verified 11/09/18 20:45 ED Review of Systems ROS: Stated complaint: SOB, RAPID HEART BEAT Other details as noted in HPI Comment: All other systems reviewed and negative ED Past Medical Hx - Past Medical History Previous Medical History?: Yes Hx Hypertension: Yes Hx Psychiatric Treatment: Yes (anxiety) - Surgical History Past Surgical History?: Yes Additional Surgical History: Tubal ligation - Social History Smoking Status: Never Smoker Substance Use Type: None - Medications Home Medications: Home Medications Medication Instructions Recorded Confirmed Last Taken Type hydrOXYzine PAMOATE [Vistaril] 25 mg PO Q6HR PRN #20 capsule 09/02/18 Unknown Rx diphenhydrAMINE [Benadryl CAP] 25 mg PO Q6HR PRN #30 capsule 10/21/18 Unknown Rx Ibuprofen [Motrin 800 MG tab] 800 mg PO Q8HR PRN #15 tablet 10/24/18 Unknown Rx Famotidine [Pepcid] 20 mg PO DAILY #14 tablet 11/10/18 Unknown Rx Amoxicillin/Potassium Clav 1 each PO Q12H #20 tablet 11/12/18 Unknown Rx [Augmentin 875-125 Tablet] Ibuprofen [Motrin] 800 mg PO Q8HR PRN #20 tablet 11/12/18 Unknown Rx hydrOXYzine PAMOATE [Vistaril] 50 mg PO Q8H PRN #30 capsule 11/12/18 Unknown Rx ED Physical Exam - General Limitations: No Limitations General appearance: alert, in no apparent distress - Head Head exam: Present: atraumatic, normocephalic - Eye Eye exam: Present: normal appearance, PERRL - ENT ENT exam: Present: mucous membranes moist - Respiratory Respiratory exam: Present: normal lung sounds bilaterally, chest wall tenderness (left anterior chest wall). Absent: respiratory distress, wheezes, rales, rhonchi, stridor, accessory muscle use, decreased breath sounds, prolonged expiratory - Cardiovascular Cardiovascular Exam: Present: regular rate, normal rhythm, normal heart sounds. Absent: systolic murmur, diastolic murmur, rubs, gallop - GI/Abdominal GI/Abdominal exam: Present: soft, normal bowel sounds. Absent: distended, tenderness, guarding, rebound, rigid - Neurological Exam Neurological exam: Present: alert, oriented X3 - Psychiatric Psychiatric exam: Present: normal affect, normal mood - Skin Skin exam: Present: warm, dry, intact ED Course Vital Signs 11/09/18 11/10/18 21:07 01:27 Temperature 98 F 98.2 F Pulse Rate 86 56 L Respiratory 16 20 Rate Blood Pressure 127/80 140/71 [Left] O2 Sat by Pulse 100 96 Oximetry ED Medical Decision Making - Lab Data Result diagrams: 11/09/18 21:15 11/09/18 21:15 Lab Results 11/09/18 11/09/18 11/09/18 Range/Units 21:15 21:15 21:15 WBC 6.4 (4.5-11.0) K/mm3 RBC 3.74 (3.65-5.03) M/mm3 Hgb 11.4 (10.1-14.3) gm/dl Hct 33.3 (30.3-42.9) % MCV 89 (79-97) fl MCH 30 (28-32) pg MCHC 34 (30-34) % RDW 14.9 (13.2-15.2) % Plt Count 321 (140-440) K/mm3 Lymph % (Auto) 33.2 (13.4-35.0) % [place] % (Auto) 5.2 (0.0-7.3) % Eos % (Auto) 0.7 (0.0-4.3) % Baso % (Auto) 0.9 (0.0-1.8) % Lymph # 2.1 (1.2-5.4) K/mm3 [place] # 0.3 (0.0-0.8) K/mm3 Eos # 0.0 (0.0-0.4) K/mm3 Baso # 0.1 (0.0-0.1) K/mm3 Seg Neutrophils % 60.0 (40.0-70.0) % Seg Neutrophils # 3.8 (1.8-7.7) K/mm3 D-Dimer (0-234) ng/mlDDU Sodium 140 (137-145) mmol/L Potassium 4.1 (3.6-5.0) mmol/L Chloride 100.8 (98-107) mmol/L Carbon Dioxide 26 (22-30) mmol/L Anion Gap 17 mmol/L BUN 13 (7-17) mg/dL Creatinine 0.9 (0.7-1.2) mg/dL Estimated GFR > 60 ml/min BUN/Creatinine Ratio 14 % Glucose 111 H (65-100) mg/dL Calcium 9.2 (8.4-10.2) mg/dL Phosphorus (2.5-4.5) mg/dL Magnesium (1.7-2.3) mg/dL TSH (0.270-4.200) mlU/mL HCG, Qual Negative (Negative) 11/09/18 11/09/18 11/09/18 Range/Units 23:33 23:33 23:33 WBC (4.5-11.0) K/mm3 RBC (3.65-5.03) M/mm3 Hgb (10.1-14.3) gm/dl Hct (30.3-42.9) % MCV (79-97) fl MCH (28-32) pg MCHC (30-34) % RDW (13.2-15.2) % Plt Count (140-440) K/mm3 Lymph % (Auto) (13.4-35.0) % [place] % (Auto) (0.0-7.3) % Eos % (Auto) (0.0-4.3) % Baso % (Auto) (0.0-1.8) % Lymph # (1.2-5.4) K/mm3 [place] # (0.0-0.8) K/mm3 Eos # (0.0-0.4) K/mm3 Baso # (0.0-0.1) K/mm3 Seg Neutrophils % (40.0-70.0) % Seg Neutrophils # (1.8-7.7) K/mm3 D-Dimer 141.38 (0-234) ng/mlDDU Sodium (137-145) mmol/L Potassium (3.6-5.0) mmol/L Chloride (98-107) mmol/L Carbon Dioxide (22-30) mmol/L Anion Gap mmol/L BUN (7-17) mg/dL Creatinine (0.7-1.2) mg/dL Estimated GFR ml/min BUN/Creatinine Ratio % Glucose (65-100) mg/dL Calcium (8.4-10.2) mg/dL Phosphorus 3.50 (2.5-4.5) mg/dL Magnesium 2.20 (1.7-2.3) mg/dL TSH 1.340 (0.270-4.200) mlU/mL HCG, Qual (Negative) 11/09/18 Range/Units 23:33 WBC (4.5-11.0) K/mm3 RBC (3.65-5.03) M/mm3 Hgb (10.1-14.3) gm/dl Hct (30.3-42.9) % MCV (79-97) fl MCH (28-32) pg MCHC (30-34) % RDW (13.2-15.2) % Plt Count (140-440) K/mm3 Lymph % (Auto) (13.4-35.0) % [place] % (Auto) (0.0-7.3) % Eos % (Auto) (0.0-4.3) % Baso % (Auto) (0.0-1.8) % Lymph # (1.2-5.4) K/mm3 [place] # (0.0-0.8) K/mm3 Eos # (0.0-0.4) K/mm3 Baso # (0.0-0.1) K/mm3 Seg Neutrophils % (40.0-70.0) % Seg Neutrophils # (1.8-7.7) K/mm3 D-Dimer (0-234) ng/mlDDU Sodium (137-145) mmol/L Potassium (3.6-5.0) mmol/L Chloride (98-107) mmol/L Carbon Dioxide (22-30) mmol/L Anion Gap mmol/L BUN (7-17) mg/dL Creatinine (0.7-1.2) mg/dL Estimated GFR ml/min BUN/Creatinine Ratio % Glucose (65-100) mg/dL Calcium (8.4-10.2) mg/dL Phosphorus (2.5-4.5) mg/dL Magnesium (1.7-2.3) mg/dL TSH (0.270-4.200) mlU/mL HCG, Qual Negative (Negative) - EKG Data EKG shows normal: sinus rhythm, axis, intervals, QRS complexes, ST-T waves Rate: normal - Radiology Data Radiology results: report reviewed PROCEDURE: XR CHEST ROUTINE 2V TECHNIQUE: PA and lateral chest radiographs were obtained. HISTORY: chest heaviness COMPARISONS: 09/06/2018. FINDINGS: Heart: Normal. Mediastinum/Vessels: Normal. Lungs/Pleural space: Normal. Bony thorax: No acute osseous abnormality. IMPRESSION: Normal examination. This document is electronically signed by Meño Jeffries MD., November 10 2018 12:55:04 AM ET - Medical Decision Making Pt is a 33 yo female who presents to ED with c/o chest heaviness that began two to three months ago. She states yesterday she began to feel like she was having a rapid heart beat. she denies any SOB, LE edema, recent long or plane ride, recent surgery, recent OCP use, urinary sx, V/D, fever, or cough. she denies any heavy lifting. she states she has had increased belching and had a burning sensation. she denies any PMHx. she denies any personal or family hx of cardiac issues or DVT/PE. vitals are normal, EKG is normal, CXR with no acute process, labs WNL, d-dimer is negative, trop is negative, TSH is normal. upon further conversation with pt she states that she is seeing a portable track line marker Dr. Lee Pham and is wearing a holter monitor, states she will be wearing it for two weeks, states she has her follow up appointment on 11/11/18. pt states that her pain resolved s/p GI cocktail. will give pt medications for acid reflux. discussed to take as prescribed. follow up with her portable track line marker and primary care doctor in the next 2-3 days. return to the emergency room for any new or worsening symptoms. Critical care attestation.: If time is entered above; I have spent that time in minutes in the direct care of this critically ill patient, excluding procedure time. ED Disposition Clinical Impression: Chest heaviness, Palpitations Disposition: - TO HOME OR SELFCARE Is pt being admited?: No Does the pt Need Aspirin: No Condition: Stable Instructions: Palpitations (ED) Additional Instructions: take medications as prescribed. follow up with your portable track line marker and primary care doctor in the next 2-3 days. return to the emergency room for any new or worsening symptoms. Prescriptions: Famotidine [Pepcid] 20 mg PO DAILY #14 tablet Referrals: KENYATTA MCKAY MD [Primary Care Provider] - 2-3 Days ALAEH PHAM MD [Staff Physician] - 2-3 Days Time of Disposition: 01:27 Print Language: JAPANESE
[2018-11-10 01:28] VITALS: BP 140/71
== END 2018-11-10 01:56 | disposition home or self-care (01) ==
LOC: ED 20:39
DX: R07.89 Other chest pain (principal); R00.2 Palpitations; I10 Essential (primary) hypertension; F41.9 Anxiety disorder, unspecified; Z98.51 Tubal ligation status
CPT/HCPCS: 36415; 71046; 80048; 83735; 84100; 84443; 84484; 84703; 85025; 85379; 93005; 93010

== ENCOUNTER 2018-11-12 01:02 | Emergency (ER) | payer SELFPAY ==
[2018-11-12] MEDS ORDERED: TYLENOL PO ONE (02:36)
[2018-11-12] MEDS ORDERED: IBUPROFEN PO ONE (02:36)
--- NOTE | 2018-11-12 03:09 | Emergency Department Report ---
ED General Adult HPI - General Chief complaint: Earache Stated complaint: HEADACHE/RT EAR PAIN Time Seen by Provider: 11/12/18 02:40 Source: patient Mode of arrival: Ambulatory Limitations: No Limitations - History of Present Illness Initial comments: Patient is a 33-year-old -[place] female with no past medical history presents with a complaint of acute onset persistent severe right ear pain for the last 12 hours. Patient states that she also has had persistent right temporal area headache. The patient also complains now of having diffuse chest pain which she describes as tightness and pressure like. Patient denies dizziness, fever, chills, nausea, vomiting, hearing loss, shortness of breath, sore throat, nasal and sinus congestion, change in vision or back pain. MD Complaint: right ear pain, chest pain, headache -: Sudden, hour(s) (12) Location: head, face (right ear pain) Radiation: non-radiation Severity scale (0 -10): 6 Quality: aching, sharp, constant Consistency: constant Improves with: none Worsens with: none Associated Symptoms: chest pain, headaches. denies: cough, diaphoresis, fever/chills, loss of appetite, malaise, nausea/vomiting, rash, seizure, shortness of breath, syncope, weakness Treatments Prior to Arrival: none - Related Data Previous Rx's Medication Instructions Recorded Last Taken Type hydrOXYzine PAMOATE [Vistaril] 25 mg PO Q6HR PRN #20 capsule 09/02/18 Unknown Rx diphenhydrAMINE [Benadryl CAP] 25 mg PO Q6HR PRN #30 capsule 10/21/18 Unknown Rx Ibuprofen [Motrin 800 MG tab] 800 mg PO Q8HR PRN #15 tablet 10/24/18 Unknown Rx Famotidine [Pepcid] 20 mg PO DAILY #14 tablet 11/10/18 Unknown Rx Amoxicillin/Potassium Clav 1 each PO Q12H #20 tablet 11/12/18 Unknown Rx [Augmentin 875-125 Tablet] Ibuprofen [Motrin] 800 mg PO Q8HR PRN #20 tablet 11/12/18 Unknown Rx hydrOXYzine PAMOATE [Vistaril] 50 mg PO Q8H PRN #30 capsule 11/12/18 Unknown Rx Allergies Allergy/AdvReac Type Severity Reaction Status Date / Time No Known Allergies Allergy Verified 11/09/18 20:45 ED Review of Systems ROS: Stated complaint: HEADACHE/RT EAR PAIN Other details as noted in HPI Comment: All other systems reviewed and negative Constitutional: no symptoms reported, see HPI. denies: chills, diaphoresis, fever, malaise Eyes: as per HPI. denies: eye pain, eye discharge, vision change ENT: ear pain (right). denies: throat pain, dental pain, hearing loss, epistaxis Respiratory: no symptoms reported, see HPI. denies: cough, orthopnea, shortness of breath, SOB with exertion, SOB at rest Cardiovascular: as per HPI, chest pain. denies: palpitations, dyspnea on exertion, orthopnea, edema, syncope, paroxysmal nocturnal dyspnea Endocrine: no symptoms reported, see HPI. denies: excessive sweating, flushing, intolerance to heat, increased hunger, increased thirst Gastrointestinal: as per HPI. denies: abdominal pain, nausea, vomiting, diarrhea, constipation Genitourinary: as per HPI. denies: urgency, dysuria, frequency, abnormal menses Musculoskeletal: as per HPI. denies: back pain, joint swelling, arthralgia, myalgia Skin: as per HPI. denies: rash, lesions, change in color, change in hair/nails Neurological: as per HPI, headache. denies: weakness, numbness, paresthesias, abnormal gait, vertigo Psychiatric: as per HPI. denies: anxiety, depression, auditory hallucinations, visual hallucinations, homicidal thoughts Hematological/Lymphatic: as per HPI ED Past Medical Hx - Past Medical History Previous Medical History?: Yes Hx Hypertension: Yes Hx Psychiatric Treatment: Yes (anxiety) Additional medical history: wearing heart monitor for palpations - Surgical History Past Surgical History?: Yes Additional Surgical History: Tubal ligation - Social History Smoking Status: Never Smoker Substance Use Type: None - Medications Home Medications: Home Medications Medication Instructions Recorded Confirmed Last Taken Type hydrOXYzine PAMOATE [Vistaril] 25 mg PO Q6HR PRN #20 capsule 09/02/18 Unknown Rx diphenhydrAMINE [Benadryl CAP] 25 mg PO Q6HR PRN #30 capsule 10/21/18 Unknown Rx Ibuprofen [Motrin 800 MG tab] 800 mg PO Q8HR PRN #15 tablet 10/24/18 Unknown Rx Famotidine [Pepcid] 20 mg PO DAILY #14 tablet 11/10/18 Unknown Rx Amoxicillin/Potassium Clav 1 each PO Q12H #20 tablet 11/12/18 Unknown Rx [Augmentin 875-125 Tablet] Ibuprofen [Motrin] 800 mg PO Q8HR PRN #20 tablet 11/12/18 Unknown Rx hydrOXYzine PAMOATE [Vistaril] 50 mg PO Q8H PRN #30 capsule 11/12/18 Unknown Rx ED Physical Exam - General Limitations: No Limitations General appearance: alert, in no apparent distress - Head Head exam: Present: atraumatic, normocephalic, normal inspection - Eye Eye exam: Present: normal appearance, PERRL, EOMI. Absent: scleral icterus, conjunctival injection, nystagmus, periorbital swelling, periorbital tenderness Pupils: Present: normal accommodation - ENT ENT exam: Present: normal exam, mucous membranes moist, normal external ear exam, other (right ear tenderness; mildly erythematous right tympanic membrane with buldging) - Neck Neck exam: Present: normal inspection, full ROM. Absent: tenderness, me ningismus, lymphadenopathy, thyromegaly - Respiratory Respiratory exam: Present: normal lung sounds bilaterally. Absent: respiratory distress, wheezes, stridor, chest wall tenderness, accessory muscle use, decreased breath sounds, prolonged expiratory - Cardiovascular Cardiovascular Exam: Present: regular rate, normal rhythm, normal heart sounds. Absent: bradycardia, diastolic murmur - GI/Abdominal GI/Abdominal exam: Present: soft, normal bowel sounds. Absent: distended, tend erness, rebound, hyperactive bowel sounds, hypoactive bowel sounds, organomegaly - Extremities Exam Extremities exam: Present: normal inspection, full ROM, normal capillary refill - Back Exam Back exam: Present: normal inspection. Absent: full ROM, tenderness, CVA tenderness (R), CVA tenderness (L), muscle spasm, vertebral tenderness - Neurological Exam Neurological exam: Present: alert, oriented X3, CN II-XII intact, normal gait, reflexes normal - Psychiatric Psychiatric exam: Present: normal affect, anxious. Absent: normal mood, flat affect, manic, homicidal ideation - Skin Skin exam: Present: warm, dry, intact, normal color. Absent: cyanosis, diaphoretic, erythema ED Course Vital Signs 11/12/18 11/12/18 11/12/18 01:10 04:54 05:00 Temperature 97.7 F Pulse Rate 73 Respiratory 18 Rate Blood Pressure 120/77 108/73 O2 Sat by Pulse 100 100 100 Oximetry 11/12/18 11/12/18 11/12/18 05:15 05:30 05:45 Temperature Pulse Rate Respiratory Rate Blood Pressure 108/73 117/78 117/78 O2 Sat by Pulse 100 100 100 Oximetry 11/12/18 06:01 Temperature Pulse Rate 66 Respiratory Rate Blood Pressure O2 Sat by Pulse Oximetry - Reevaluation(s) Reevaluation #1: 11/12/18 06:35 Patient is alert and oriented 3 and is not in any distress. While the patient had initially come to the ED with the complaint of right ear pain, she developed chest tightness and pressure while in the ED and was worked up for coronary artery disease rule out. Initial EKG showed sinus bradycardia with a heart rate of 59 bpm, and now is T or T-wave abnormalities. Patient declined chest x-ray. Lab test results were reviewed and were unremarkable including d-dimer and troponin levels. Patient was discharged home on medications and advised to fol low-up with her primary care physician in 3-5 days for reevaluation or return to the ED immediately if symptoms get worse. ED Medical Decision Making - Lab Data Result diagrams: 11/12/18 03:28 11/12/18 03:28 - EKG Data EKG shows normal: sinus rhythm Rate: bradycardia (with heart rate of 59 bpm) - Medical Decision Making Patient is alert and oriented 3 and is not in any distress. While the patient had initially come to the ED with the complaint of right ear pain, she developed chest tightness and pressure while in the ED and was worked up for coronary artery disease rule out. Initial EKG showed sinus bradycardia with a heart rate of 59 bpm, and now is T or T-wave abnormalities. Patient declined chest x-ray. Lab test results were reviewed and were unremarkable including d-dimer and troponin levels. Patient was discharged home on medications and advised to follow-up with her primary care physician in 3-5 days for reevaluation or return to the ED immediately if symptoms get worse. - Differential Diagnosis acute otitis media, nonspecific chest pain, anxiety Critical care attestation.: If time is entered above; I have spent that time in minutes in the direct care of this critically ill patient, excluding procedure time. ED Disposition Clinical Impression: Acute right otitis media, Nonspecific chest pain, Anxiety as acute reaction to exceptional stress Tension type headache Qualifiers: Headache chronicity pattern: unspecified pattern Intractability: not intractable Qualified Code(s): G44.209 - Tension-type headache, unspecified, not intractable Disposition: DC-01 TO HOME OR SELFCARE Is pt being admited?: No Does the pt Need Aspirin: No Condition: Stable Instructions: Chest Pain (ED), Otitis Media (ED), Generalized Anxiety Disorder (ED) Additional Instructions: Take medications with food, drink plenty of fluids and follow up with your primary care physician as advised. Return to the ED immediately if symptoms get worse. Prescriptions: Amoxicillin/Potassium Clav [Augmentin 875-125 Tablet] 1 each PO Q12H #20 tablet Ibuprofen [Motrin] 800 mg PO Q8HR PRN #20 tablet PRN Reason: Pain , Severe (7-10) hydrOXYzine PAMOATE [Vistaril] 50 mg PO Q8H PRN #30 capsule PRN Reason: Anxiety Referrals: KENYATTA MCKAY MD [Primary Care Provider] - 3-5 Days Time of Disposition: 06:39 Print Language: [place]
[2018-11-12 04:16] LABS: Basophils % (Auto) 0.6 % (0.0-1.8); Eosinophils # (Auto) 0.1 K/mm3 (0.0-0.4); Eosinophils % (Auto) 1.2 % (0.0-4.3); Hemoglobin 11.7 gm/dl (10.1-14.3); Lymphocytes # (Auto) 2.1 K/mm3 (1.2-5.4); Mean Corpuscular HGB Conc 33 % (30-34); Mean Corpuscular Volume 88 fl (79-97); Monocytes # (Auto) 0.3 K/mm3 (0.0-0.8); Monocytes % (Auto) 5.5 % (0.0-7.3); Platelet Count 301 K/mm3 (140-440); Red Blood Count 3.96 M/mm3 (3.65-5.03); Red Cell Distribution Width 14.6 % (13.2-15.2)
[2018-11-12 04:34] LABS: Alanine Aminotransferase 14 units/L (7-56); Albumin 4.1 g/dL (3.9-5); BUN/Creatinine Ratio 15; Blood Urea Nitrogen 12 mg/dL (7-17); Calcium 9.8 mg/dL (8.4-10.2); Hemolysis Index 12
[2018-11-12 07:21] VITALS: BP 113/76
== END 2018-11-12 07:21 | disposition home or self-care (01) ==
LOC: ED 01:02
DX: G44.209 Tension-type headache, unspecified, not intractable (principal); H66.91 Otitis media, unspecified, right ear; F41.9 Anxiety disorder, unspecified; I10 Essential (primary) hypertension; Z98.51 Tubal ligation status
CPT/HCPCS: 36415; 80053; 84484; 85025; 85379; 93005; 93010

== ENCOUNTER 2018-11-12 18:31 | Emergency (ER) | payer SELFPAY ==
--- NOTE | 2018-11-12 18:45 | Emergency Department Report ---
Chief Complaint: Chest Pain Stated Complaint: PALPITATION Time Seen by Provider: 11/12/18 18:43 - HPI History of Present Illness: This is a 33 y.o. F. that presents to the ER with palpitations. Patient was driving and started having palpitations and pulled over. She called EMS who brought her in for further evaluation. Patient seen in ER twice this week with similar symptoms. Patient is wearing a heart monitor from [employer]. MSE screening note: Focused history and physical exam performed. Due to findings the following was ordered: This initial assessment/diagnostic orders/clinical plan/treatment(s) is/are subject to change based on patient's health status, clinical progression and re- assessment by fellow clinical providers in the ED. Further treatment and workup at subsequent clinical providers discretion. Patient/guardians urged not to elope from the ED as their condition may be serious if not clinically assessed and managed. Initial orders include: Labs, EKG, and CXR Main ED for further evaluation. ED Disposition for MSE Condition: Stable
[2018-11-12] MEDS ORDERED: ASPIRIN PO ONE (18:49)
[2018-11-12] MEDS ORDERED: TORADOL IV ONE (19:59)
--- NOTE | 2018-11-12 20:02 | Emergency Department Report ---
ED General Adult HPI - General Chief complaint: Chest Pain Stated complaint: PALPITATION Time Seen by Provider: 11/12/18 18:43 Source: patient, RN notes reviewed, old records reviewed Mode of arrival: Ambulatory Limitations: No Limitations - History of Present Illness Initial comments: This is a 33-year-old female. Her private pomology teacher is Dr. Mora. The patient has had multiple visits to this hospital recently for chest palpitations and pressure. Patient has been seen on October 15, October 21, October 24, October 27, November 09, November 10, November 12. Throughout these aforementioned evaluations, the patient has had extensive evaluation, including multiple negative d-dimer studies, multiple negative troponins, multiple negative tests, multiple unremarkable EKGs, multiple unremarkable chest x-rays, and unremarkable TSH screening test. She currently has a Holter monitor that was prescribed by her pomology teacher, Dr. Mora. The patient presents to the emergency room today with a complaint of palpitations and chest pressure. This started at around 2:00 this afternoon. The sensation is constant, and occasionally radiates to her back. She denies vomiting but endorses nausea. She is drinking soda at this time. She has trapezius pressure, but she otherwise denies DVT, pulmonary embolus risk factors. She is resting comfortably on her stretcher. She denies headache, neck pain, abdominal pain, leg pain and leg swelling. She reports getting 3-4 hours of sleep per night, and endorses that her palpitations wake her up from sleep, she buys it difficult to go back to sleep. She is not working currently. She does not smoke cannabis or cigarettes. She is not consuming stimulants such as energy drinks or soda. -: Sudden Location: chest Consistency: intermittent Improves with: none Worsens with: none - Related Data Previous Rx's Medication Instructions Recorded Last Taken Type hydrOXYzine PAMOATE [Vistaril] 25 mg PO Q6HR PRN #20 capsule 09/02/18 Unknown Rx diphenhydrAMINE [Benadryl CAP] 25 mg PO Q6HR PRN #30 capsule 10/21/18 Unknown Rx Ibuprofen [Motrin 800 MG tab] 800 mg PO Q8HR PRN #15 tablet 10/24/18 Unknown Rx Famotidine [Pepcid] 20 mg PO DAILY #14 tablet 11/10/18 Unknown Rx Amoxicillin/Potassium Clav 1 each PO Q12H #20 tablet 11/12/18 Unknown Rx [Augmentin 875-125 Tablet] Ibuprofen [Motrin] 800 mg PO Q8HR PRN #20 tablet 11/12/18 Unknown Rx hydrOXYzine PAMOATE [Vistaril] 50 mg PO Q8H PRN #30 capsule 11/12/18 Unknown Rx Allergies Allergy/AdvReac Type Severity Reaction Status Date / Time No Known Allergies Allergy Verified 11/09/18 20:45 ED Review of Systems ROS: Stated complaint: PALPITATION Other details as noted in HPI Constitutional: denies: fever Eyes: denies: eye discharge Respiratory: denies: cough Cardiovascular: chest pain, palpitations Gastrointestinal: nausea. denies: abdominal pain Genitourinary: denies: dysuria Skin: denies: lesions Neurological: weakness Psychiatric: anxiety ED Past Medical Hx - Past Medical History Previous Medical History?: Yes Hx Hypertension: Yes Hx Psychiatric Treatment: Yes (anxiety) Additional medical history: wearing heart monitor for palpations - Surgical History Past Surgical History?: Yes Additional Surgical History: Tubal ligation - Social History Smoking Status: Never Smoker Substance Use Type: None - Medications Home Medications: Home Medications Medication Instructions Recorded Confirmed Last Taken Type hydrOXYzine PAMOATE [Vistaril] 25 mg PO Q6HR PRN #20 capsule 09/02/18 Unknown Rx diphenhydrAMINE [Benadryl CAP] 25 mg PO Q6HR PRN #30 capsule 10/21/18 Unknown Rx Ibuprofen [Motrin 800 MG tab] 800 mg PO Q8HR PRN #15 tablet 10/24/18 Unknown Rx Famotidine [Pepcid] 20 mg PO DAILY #14 tablet 11/10/18 Unknown Rx Amoxicillin/Potassium Clav 1 each PO Q12H #20 tablet 11/12/18 Unknown Rx [Augmentin 875-125 Tablet] Ibuprofen [Motrin] 800 mg PO Q8HR PRN #20 tablet 11/12/18 Unknown Rx hydrOXYzine PAMOATE [Vistaril] 50 mg PO Q8H PRN #30 capsule 11/12/18 Unknown Rx ED Physical Exam - General Limitations: No Limitations General appearance: alert, anxious - Head Head exam: Present: atraumatic, normocephalic - Eye Eye exam: Present: normal appearance, EOMI, other (visual acuity intact to finger counting, color perception, reading at a close distance). Absent: nystagmus - ENT ENT exam: Present: normal exam, normal orophraynx, mucous membranes moist, normal external ear exam - Neck Neck exam: Present: normal inspection, full ROM. Absent: tenderness, meningismus - Respiratory Respiratory exam: Present: normal lung sounds bilaterally. Absent: respiratory distress - Cardiovascular Cardiovascular Exam: Present: regular rate, normal rhythm, normal heart sounds. Absent: bradycardia, tachycardia, irregular rhythm, systolic murmur, diastolic murmur, rubs, gallop - GI/Abdominal GI/Abdominal exam: Present: soft. Absent: distended, tenderness, guarding, rebound, rigid, pulsatile mass - Extremities Exam Extremities exam: Present: normal inspection, full ROM, other (2+ pulses noted in the bilateral upper, lower extremities. Compartments soft. No long bony tenderness. The pelvis is stable.). Absent: pedal edema, joint swelling - Back Exam Back exam: Present: normal inspection, full ROM. Absent: tenderness, CVA tenderness (R), CVA tenderness (L), muscle spasm, paraspinal tenderness, vertebral tenderness - Neurological Exam Neurological exam: Present: alert, oriented X3, other (Extraocular movements intact. Tongue midline. No facial droop. Facial sensation intact to light touch in the V1, V2, V3 distribution bilaterally. 5 and 5 strength in 4 extremities.. Sensation is intact to light touch in 4 extremities.). Absent: motor sensory deficit - Psychiatric Psychiatric exam: Present: anxious - Skin Skin exam: Present: warm, dry, intact, normal color. Absent: rash ED Course Vital Signs 11/12/18 11/12/18 11/12/18 19:15 19:45 19:57 Pulse Rate 88 76 Respiratory 18 11 L 18 Rate Blood Pressure 117/78 118/79 O2 Sat by Pulse 100 100 99 Oximetry ED Medical Decision Making - Lab Data Result diagrams: 11/12/18 19:18 11/12/18 19:18 Vital Signs 11/12/18 11/12/18 11/12/18 19:15 19:45 19:57 Pulse Rate 88 76 Respiratory 18 11 L 18 Rate Blood Pressure 117/78 118/79 O2 Sat by Pulse 100 100 99 Oximetry Lab Results 11/12/18 11/12/18 Range/Units 19:18 19:18 WBC 5.4 (4.5-11.0) K/mm3 RBC 4.28 (3.65-5.03) M/mm3 Hgb 12.7 (10.1-14.3) gm/dl Hct 38.1 (30.3-42.9) % MCV 89 (79-97) fl MCH 30 (28-32) pg MCHC 34 (30-34) % RDW 14.8 (13.2-15.2) % Plt Count 315 (140-440) K/mm3 Lymph % (Auto) 29.8 (13.4-35.0) % [place] % (Auto) 4.3 (0.0-7.3) % Eos % (Auto) 0.6 (0.0-4.3) % Baso % (Auto) 0.8 (0.0-1.8) % Lymph # 1.6 (1.2-5.4) K/mm3 [place] # 0.2 (0.0-0.8) K/mm3 Eos # 0.0 (0.0-0.4) K/mm3 Baso # 0.0 (0.0-0.1) K/mm3 Seg Neutrophils % 64.5 (40.0-70.0) % Seg Neutrophils # 3.5 (1.8-7.7) K/mm3 Sodium 139 (137-145) mmol/L Potassium 3.7 D (3.6-5.0) mmol/L Chloride 102.4 (98-107) mmol/L Carbon Dioxide 23 (22-30) mmol/L Anion Gap 17 mmol/L BUN 10 (7-17) mg/dL Creatinine 0.9 (0.7-1.2) mg/dL Estimated GFR > 60 ml/min BUN/Creatinine Ratio 11 % Glucose 130 H (65-100) mg/dL Calcium 9.3 (8.4-10.2) mg/dL Troponin T < 0.010 (0.00-0.029) ng/mL - Radiology Data Radiology results: report reviewed, image reviewed Print Report Referring Physician: JANN MADSEN Patient Name: ALFONSO RANGEL Date of : 1985 Sex: Female Report Date: 2018-11-12 Report Status: Finalized Findings [facility] [address] [place] [address] XRay Report Signed Patient: ALFONSO RANGEL MR#: [id number] : 1985 Acct:[id number] Age/Sex: 33 / F ADM Date: 11/12/18 Loc: ED Attending Dr: Ordering Physician: NEGRA VALLE Date of Service: 11/12/18 Procedure(s): XR chest 1V ap Accession Number(s): [id number] cc: NEGRA VALLE Fluoro Time In Minutes: PROCEDURE: XR CHEST 1V AP TECHNIQUE: Chest radiograph single view. HISTORY: Chest Pain COMPARISONS: CXR 11/09/2018 . FINDINGS: Heart: Normal. Mediastinum/Vessels: Normal. Lungs/Pleural space: Normal. Bony thorax: No acute osseous abnormality. Life support devices: None. IMPRESSION: No acute cardiopulmonary abnormality. No change This document is el ectronically signed by Bita Hinson MD., November 12 2018 08:06:31 PM ET Transcribed By: [facility] Dictated By: BITA HINSON MD Electronically Authenticated By: BITA HINSON MD Signed Date/Time: 11/12/18 2008 - Medical Decision Making Differential diagnosis, including not limited to: Anxiety, panic attack, mitral valve prolapse Assessment and plan: 33-year-old female with recurrent similar symptoms, chest pressure, discomfort, palpitations, currently following up with an outpatient pomology teacher, Dr Lakisha Mora. Patient has had extensive objective workup at this hospital, in the form of blood tests, EKG, d-dimer, TSH. Patient is very low risk by the heart score, endorses no DVT or pulmonary embolus risk factors, is low risk by well's criteria, perc negative Upon entering the room, the patient is looking and playing on her cellular phone, and does not appear to be in any acute distress. Her objective laboratory testing and EKG today are unremarkable and unchanged from prior. Extensive discussion had with the patient. We discussed initiation of calming techniques. We discussed avoidance of caffeinated beverages, stimulants, and importance of getting good quality sleep. Contacted her primary pomology teacher Dr. Mora as a courtesy, we discussed the patient's laboratory findings an EKG, she is agreeable to have the patient follow-up as an outpatient, she believes that the patient likely had an unremarkable echocardiogram, and does not believe it demonstrated evidence of mitral valve prolapse. Acute coronary syndrome very unlikely. Critical care attestation.: If time is entered above; I have spent that time in minutes in the direct care of this critically ill patient, excluding procedure time. ED Disposition Clinical Impression: Palpitations, Nonspecific chest pain Disposition: DC-01 TO HOME OR SELFCARE Is pt being admited?: No Does the pt Need Aspirin: No Condition: Stable Instructions: Panic Disorder (ED) Additional Instructions: Make certain to get good quality sleep every night, 6-8 hours of uninterrupted sleep. Avoid consumption of caffeine, sugary drinks, stimulants and energy drinks. Avoid consumption of cannabis and tobacco, and avoid secondhand exposure to the aforementioned. Practice internal calming techniques as discussed, and please make certain to follow-up with her private pomology teacher within the next 2 weeks, or when scheduled. Return to the emergency room right away with new, worsened or different symptoms, or symptoms not present on the initial ER evaluation. Referrals: ALEAH MORA MD [Staff Physician] - 3-5 Days
[2018-11-12 20:06] LABS: BUN/Creatinine Ratio 11; Basophils % (Auto) 0.8 % (0.0-1.8); Blood Urea Nitrogen 10 mg/dL (7-17); Calcium 9.3 mg/dL (8.4-10.2); Eosinophils % (Auto) 0.6 % (0.0-4.3); Hematocrit 38.1 % (30.3-42.9); Hemoglobin 12.7 gm/dl (10.1-14.3); Hemolysis Index 6; Lymphocytes # (Auto) 1.6 K/mm3 (1.2-5.4); Lymphocytes % (Auto) 29.8 % (13.4-35.0); Mean Corpuscular HGB Conc 34 % (30-34); Mean Corpuscular Volume 89 fl (79-97); Monocytes # (Auto) 0.2 K/mm3 (0.0-0.8); Monocytes % (Auto) 4.3 % (0.0-7.3); Platelet Count 315 K/mm3 (140-440); Red Blood Count 4.28 M/mm3 (3.65-5.03); Red Cell Distribution Width 14.8 % (13.2-15.2)
--- NOTE | 2018-11-12 20:08 | XRay Report ---
PROCEDURE: XR CHEST 1V AP TECHNIQUE: Chest radiograph single view. HISTORY: Chest Pain COMPARISONS: CXR 11/09/2018 . FINDINGS: Heart: Normal. Mediastinum/Vessels: Normal. Lungs/Pleural space: Normal. Bony thorax: No acute osseous abnormality. Life support devices: None. IMPRESSION: No acute cardiopulmonary abnormality. No change This document is electronically signed by Bita Hinson MD., November 12 2018 08:06:31 PM ET
[2018-11-12 20:59] VITALS: BP 103/55
== END 2018-11-12 21:08 | disposition home or self-care (01) ==
LOC: ED 18:31
DX: R00.2 Palpitations (principal); R07.89 Other chest pain; I10 Essential (primary) hypertension; F41.9 Anxiety disorder, unspecified
CPT/HCPCS: 36415; 71045; 80048; 84484; 85025; 93005; 93010; 96374; 99284; J1885

== ENCOUNTER 2018-11-16 14:52 | Emergency (ER) | payer SELFPAY ==
[2018-11-16 15:03] VITALS: BP 126/90
--- NOTE | 2018-11-16 15:07 | Emergency Department Report ---
Blank Doc - Documentation Documentation: 33 y o female presents with generalized body aches, left sided sore throat and left armpit swelling x yesterday acc eval lmp 10/25/18
[2018-11-16 15:49] LABS: Bilirubin,Urine NEG (Negative); Blood,Urine SM (Negative); Color,Urine Yellow (Yellow); Protein,Urine <15 mg/dL mg/dL (Negative); Urobilinogen,Urine < 2.0 mg/dL (<2.0)
[2018-11-16 15:56] LABS: HCG Qualitative,Urine Negative (Negative)
[2018-11-16 16:01] LABS: Basophils % (Auto) 0.7 % (0.0-1.8); Eosinophils % (Auto) 0.5 % (0.0-4.3); Hematocrit 38.3 % (30.3-42.9); Hemoglobin 12.9 gm/dl (10.1-14.3); Lymphocytes # (Auto) 1.3 K/mm3 (1.2-5.4); Lymphocytes % (Auto) 22.2 % (13.4-35.0); Mean Corpuscular HGB Conc 34 % (30-34); Mean Corpuscular Volume 88 fl (79-97); Monocytes # (Auto) 0.3 K/mm3 (0.0-0.8); Monocytes % (Auto) 5.1 % (0.0-7.3); Platelet Count 347 K/mm3 (140-440); Red Blood Count 4.35 M/mm3 (3.65-5.03); Red Cell Distribution Width 14.5 % (13.2-15.2)
[2018-11-16 16:15] LABS: BUN/Creatinine Ratio 15; Blood Urea Nitrogen 17 mg/dL (7-17); Calcium 9.2 mg/dL (8.4-10.2); Hemolysis Index 7
[2018-11-16] MEDS ORDERED: TORADOL IM ONE (16:20)
--- NOTE | 2018-11-16 16:32 | Emergency Department Report ---
HPI - General Chief Complaint: Sore Throat Time Seen by Provider: 11/16/18 15:01 - HPI HPI: 43-year-old -[place] female presents to the emergency department with a few different complaints. First, the patient has been having some generalized body aches over the past few days. Secondly, the patient complains of some swelling to the left arm pit over the past few days. It is slightly sore but not significantly painful. She denies any skin color change or any trauma to the area. Lastly, the patient also complains of some swelling to the left lower portion of her neck. She denies any sore throat or difficulty swallowing. The patient has a history of anxiety and palpitations. She is currently wearing a Holter monitor. She has been seen here multiple times in the recent past for her palpitations. Her primary care physician is Dr. Saud Braun and she says that she has an appointment coming up soon. No recent travel or sick contacts at home. She denies any chest pain, back pain, shortness of breath, fever. She has not taken any medication for her symptoms prior to arrival today. ED Past Medical Hx - Past Medical History Previous Medical History?: Yes Hx Hypertension: Yes Hx Psychiatric Treatment: Yes (anxiety) Additional medical history: wearing heart monitor for palpations - Surgical History Past Surgical History?: Yes Additional Surgical History: Tubal ligation - Social History Smoking Status: Never Smoker Substance Use Type: None - Medications Home Medications: Home Medications Medication Instructions Recorded Confirmed Last Taken Type hydrOXYzine PAMOATE [Vistaril] 25 mg PO Q6HR PRN #20 capsule 09/02/18 Unknown Rx diphenhydrAMINE [Benadryl CAP] 25 mg PO Q6HR PRN #30 capsule 10/21/18 Unknown Rx Ibuprofen [Motrin 800 MG tab] 800 mg PO Q8HR PRN #15 tablet 10/24/18 Unknown Rx Famotidine [Pepcid] 20 mg PO DAILY #14 tablet 11/10/18 Unknown Rx Amoxicillin/Potassium Clav 1 each PO Q12H #20 tablet 11/12/18 Unknown Rx [Augmentin 875-125 Tablet] Ibuprofen [Motrin] 800 mg PO Q8HR PRN #20 tablet 11/12/18 Unknown Rx hydrOXYzine PAMOATE [Vistaril] 50 mg PO Q8H PRN #30 capsule 11/12/18 Unknown Rx ED Review of Systems ROS: Stated complaint: BODY PAIN/LEFT ARM PIT AND NECK Other details as noted in HPI Comment: All other systems reviewed and negative Constitutional: denies: chills, fever Eyes: denies: eye pain, vision change ENT: denies: ear pain, throat pain Respiratory: denies: cough, shortness of breath Cardiovascular: denies: chest pain, palpitations Gastrointestinal: denies: abdominal pain, vomiting Genitourinary: denies: dysuria, discharge Musculoskeletal: other (neck swelling/pain, swelling/pain to left axilla). denies: back pain Skin: denies: rash, pruritus Neurological: denies: headache, weakness, numbness Physical Exam - Physical Exam Vital Signs: Vital Signs 11/16/18 15:01 Temperature 98.5 F Pulse Rate 89 Respiratory 18 Rate Blood Pressure 126/90 O2 Sat by Pulse 100 Oximetry Physical Exam: GENERAL: The patient is well-developed well-nourished. HENT: Normocephalic. Atraumatic. Patient has moist mucous membranes. Oropharynx is clear. EYES: Extraocular motions are intact. Pupils equal reactive to light bilaterally. NECK: Supple. Trachea is midline. There is some mild tenderness to palpation to the left lateral neck but no obvious deformity appreciated. CHEST/LUNGS: Clear to auscultation. There is no respiratory distress noted. HEART/CARDIOVASCULAR: Regular. There is no tachycardia. There is no murmur. ABDOMEN: Abdomen is soft, nontender. Patient has normal bowel sounds. There is no abdominal distention. SKIN: Skin is warm and dry. There is some swelling to the left axilla but the area is soft, not fluctuant, not indurated. There is no warmth, skin color change. NEURO: The patient is awake, alert, and oriented. The patient is cooperative. The patient has no focal neurologic deficits. The patient has normal speech. MUSCULOSKELETAL: There is no tenderness or deformity. There is no limitation range of motion. There is no evidence of acute injury. ED Course Vital Signs 11/16/18 15:01 Temperature 98.5 F Pulse Rate 89 Respiratory 18 Rate Blood Pressure 126/90 O2 Sat by Pulse 100 Oximetry ED Medical Decision Making - Lab Data Result diagrams: 11/16/18 15:46 11/16/18 15:46 - Medical Decision Making This patient presents to the emergency Department with complaints of generalized body aches, some swelling under the left armpit, and some type of swelling or nodule that she feels worse the left side of her neck. Some basic blood work was obtained and was unremarkable including a CBC and metabolic panel. She also had a urinalysis that did not show any urinary tract infection, and the patient is not . I was unable to appreciate the swelling or nodule that she felt to the left side of the neck. It is in the area of her cervical muscles as well as cervical lymph chain so a differential could include lymphadenopathy versus muscle spasm versus other. I was able to appreciate and evaluate the swelling under her left armpit. When compared to the right, there is some area of swelling but it is soft, not firm or indurated, not warm or fluctuant and there were no skin color changes. I once again suspect that it could be a lymph node. Given the area of his lymph node, I expressed the importance of following up with a primary care physician or [employer], having a breast exam, getting up to date on her mammogram, and to make sure that it isn't something malignant. The differential also could include early abscess formation or hidradenitis. It does not appear as consistent with that at this time. I did not feel that there was any benefit of any type of imaging at this time. The CBC did not show any leukocytosis or leukopenia. The patient was given multiple referrals for follow-up. She will return to the ER with any worsening of her symptoms or any acute distress. - Differential Diagnosis muscle spasm, lymphadenopathy, early abscess, cyst Critical Care Time: No Critical care attestation.: If time is entered above; I have spent that time in minutes in the direct care of this critically ill patient, excluding procedure time. ED Disposition Clinical Impression: Neck pain on left side, Swelling in left armpit, Generalized body aches Disposition: DC-01 TO HOME OR SELFCARE Is pt being admited?: No Condition: Stable Instructions: Lymphadenopathy (ED) Additional Instructions: Please follow-up with your primary care physician in the next few days. I have given you some information about lymphadenopathy, lymph nodes, as we discussed this is a possible reason for your left arm pit swelling. Please make sure to continue to monitor the swelling of the arm pit and neck. Make sure you return to the emergency department with any worsening of your symptoms, or with any acute distress. Referrals: SAUD BRAUN MD [Referring] - 2-3 Days Time of Disposition: 16:39
== END 2018-11-16 16:46 | disposition home or self-care (01) ==
LOC: ED 14:52
DX: M79.10 Myalgia, unspecified site (principal); R22.32 Localized swelling, mass and lump, left upper limb; M54.2 Cervicalgia
CPT/HCPCS: 36415; 80048; 81001; 81025; 85025; 96372; 99283; J1885

== ENCOUNTER 2018-11-23 23:15 | Emergency (ER) | payer OTHER ==
--- NOTE | 2018-11-24 02:07 | Emergency Department Report ---
ED Shortness of Breath HPI - General Chief Complaint: Dyspnea/Respdistress Stated Complaint: SOB Time Seen by Provider: 11/24/18 01:30 Source: patient Mode of arrival: Ambulatory Limitations: No Limitations - History of Present Illness Initial Comments: Uriel is a 33-year-old female presents to emergency room with complaints of shortness of breath 2 days. Patient states that the shortness of breath is better with rest and worse with exertion. Patient states she has had panic attacks in the past. Patient states she feels like this is a panic attack and anxiety. Patient denies chest pain. Patient denies any physical complaints MD Complaint: shortness of breath -: Sudden Severity: severe Consistency: intermittent Improves With: rest Worsens With: exertion Associated Symptoms: denies other symptoms, palpitations Treatments Prior to Arrival: none - Related Data Home Oxygen Therapy: No Previous Rx's Medication Instructions Recorded Last Taken Type hydrOXYzine PAMOATE [Vistaril] 25 mg PO Q6HR PRN #20 capsule 09/02/18 Unknown Rx diphenhydrAMINE [Benadryl CAP] 25 mg PO Q6HR PRN #30 capsule 10/21/18 Unknown Rx Ibuprofen [Motrin 800 MG tab] 800 mg PO Q8HR PRN #15 tablet 10/24/18 Unknown Rx Famotidine [Pepcid] 20 mg PO DAILY #14 tablet 11/10/18 Unknown Rx Amoxicillin/Potassium Clav 1 each PO Q12H #20 tablet 11/12/18 Unknown Rx [Augmentin 875-125 Tablet] Ibuprofen [Motrin] 800 mg PO Q8HR PRN #20 tablet 11/12/18 Unknown Rx hydrOXYzine PAMOATE [Vistaril] 50 mg PO Q8H PRN #30 capsule 11/12/18 Unknown Rx Allergies Allergy/AdvReac Type Severity Reaction Status Date / Time No Known Allergies Allergy Verified 11/09/18 20:45 ED Review of Systems ROS: Stated complaint: SOB Other details as noted in HPI Constitutional: denies: chills, fever Eyes: denies: eye pain, eye discharge, vision change ENT: denies: ear pain, throat pain Respiratory: shortness of breath. denies: cough, wheezing Cardiovascular: palpitations. denies: chest pain Endocrine: no symptoms reported Gastrointestinal: denies: abdominal pain, nausea, diarrhea Genitourinary: denies: urgency, dysuria, discharge Musculoskeletal: denies: back pain, joint swelling, arthralgia Skin: denies: rash, lesions Neurological: denies: headache, weakness, paresthesias Psychiatric: denies: anxiety, depression Hematological/Lymphatic: denies: easy bleeding, easy bruising ED Past Medical Hx - Past Medical History Previous Medical History?: Yes Hx Hypertension: Yes Hx Psychiatric Treatment: Yes (anxiety) Additional medical history: wearing heart monitor for palpations - Surgical History Past Surgical History?: Yes Additional Surgical History: Tubal ligation - Family History Family history: no significant - Social History Smoking Status: Never Smoker Substance Use Type: None - Medications Home Medications: Home Medications Medication Instructions Recorded Confirmed Last Taken Type hydrOXYzine PAMOATE [Vistaril] 25 mg PO Q6HR PRN #20 capsule 09/02/18 Unknown Rx diphenhydrAMINE [Benadryl CAP] 25 mg PO Q6HR PRN #30 capsule 10/21/18 Unknown Rx Ibuprofen [Motrin 800 MG tab] 800 mg PO Q8HR PRN #15 tablet 10/24/18 Unknown Rx Famotidine [Pepcid] 20 mg PO DAILY #14 tablet 11/10/18 Unknown Rx Amoxicillin/Potassium Clav 1 each PO Q12H #20 tablet 11/12/18 Unknown Rx [Augmentin 875-125 Tablet] Ibuprofen [Motrin] 800 mg PO Q8HR PRN #20 tablet 11/12/18 Unknown Rx hydrOXYzine PAMOATE [Vistaril] 50 mg PO Q8H PRN #30 capsule 11/12/18 Unknown Rx ED Physical Exam - General Limitations: No Limitations General appearance: alert, in no apparent distress - Head Head exam: Present: atraumatic, normocephalic - Eye Eye exam: Present: normal appearance - ENT ENT exam: Present: mucous membranes moist - Neck Neck exam: Present: normal inspection - Respiratory Respiratory exam: Present: normal lung sounds bilaterally. Absent: respiratory distress - Cardiovascular Cardiovascular Exam: Present: regular rate, normal rhythm. Absent: systolic murmur, diastolic murmur, rubs, gallop - GI/Abdominal GI/Abdominal exam: Present: soft, normal bowel sounds - Extremities Exam Extremities exam: Present: normal inspection - Back Exam Back exam: Present: normal inspection - Neurological Exam Neurological exam: Present: alert, oriented X3 - Psychiatric Psychiatric exam: Present: anxious - Skin Skin exam: Present: warm, dry, intact, normal color. Absent: rash ED Course Vital Signs 11/23/18 11/24/18 11/24/18 23:19 00:13 00:43 Temperature 97.8 F 98 F Pulse Rate 81 68 70 Respiratory 18 16 Rate Blood Pressure 136/82 Blood Pressure 122/76 122/85 [Left] O2 Sat by Pulse 99 100 Oximetry 11/24/18 11/24/18 11/24/18 01:00 02:00 03:00 Temperature Pulse Rate 67 89 70 Respiratory 13 14 15 Rate Blood Pressure 122/75 122/75 126/69 Blood Pressure [Left] O2 Sat by Pulse 100 100 100 Oximetry 11/24/18 11/24/18 11/24/18 04:46 05:00 05:46 Temperature Pulse Rate 74 Respiratory 16 12 16 Rate Blood Pressure 125/80 Blood Pressure [Left] O2 Sat by Pulse 100 Oximetry 11/24/18 06:25 Temperature 98 F Pulse Rate 83 Respiratory 16 Rate Blood Pressure Blood Pressure 110/74 [Left] O2 Sat by Pulse 100 Oximetry - Reevaluation(s) Reevaluation #1: During initial evaluation, Patient became tachycardic and short of breath, heart rate in the 130's. Patient will have labs and a CTA done. Patient agrees with plan of care. 11/24/18 01:50 Patient's IV infiltrated and the nurses unable to establish new IV access. Right EJ placed. See procedure note 11/24/18 04:15 Discussed all results with patient. Patient is stable for discharge. Patient will be discharged home. Patient agrees to plan of care. Patient given discharge instructions. Patient voiced understanding of discharge instructions. 11/24/18 06:03 - EJ/Peripheral Line Neck R Time Out Performed: Yes Indications: nurses unable to establis Skin Cleansed in Sterile Fashion: Yes Size: 20 Dressing Placed: Tegaderm, tape Patient Tolerated Procedure: well, no complications ED Medical Decision Making - Lab Data Result diagrams: 11/24/18 02:37 11/24/18 02:37 - EKG Data -: EKG Interpreted by Me EKG shows normal: sinus rhythm, axis, intervals, QRS complexes, ST-T waves Rate: normal - Radiology Data Radiology results: report reviewed PROCEDURE: CT ANGIO CHEST TECHNIQUE: Computerized tomographic angiography of the chest was performed after the IV injection of iodinated nonionic contrast including image processing. The image data was postprocessed using 2-dimensional multiplanar reformatted (MPR) and 3-dimensional (MIP and/or volume rendered) techniques. Automated exposure control, adjustment of mA and/or kV according to patient size, or iterative reconstruction dose optimization techniques were utilized. CT DOSE LENGTH PRODUCT: 598.7 mGycm HISTORY: sob/ tachy COMPARISONS: Chest radiograph 11/12/2018 . FINDINGS: Normal caliber main pulmonary artery. No central or large segmental pulmonary embolism. Contrast opacification of the more peripheral pulmonary arterial tree isn't sufficient for more detailed evaluation of pulmonary embolism. No pericardial effusion. Thoracic aorta is normal in course and caliber. Incidentally noted aberrant right subclavian artery. No periaortic fluid or stranding. No pneumothorax, effusion or focal airspace disease. The central airways are patent. No bronchiectasis. Imaged portion of the upper abdomen is unremarkable. The superficial soft tissues are unremarkable. No acute bony abnormality or wo rrisome osseous lesions identified. IMPRESSION: No centrilobular segmental pulmonary embolism or other acute finding. - Medical Decision Making Patient is a 33-year-old female that presents to emergency room with shortness of breath. Patient found to have tachycardia. Patient had a CTA of her chest done and was negative. Patient's symptoms most likely secondary to anxiety. Patient will be discharged home. Patient given discharge instructions. Patient's labs unremarkable. - Differential Diagnosis SOB. PE. Anxiety. Tachycardia. Critical care attestation.: If time is entered above; I have spent that time in minutes in the direct care of this critically ill patient, excluding procedure time. ED Disposition Clinical Impression: Palpitations, SOB (shortness of breath), Tachycardia, Anxiety Disposition: DC-01 TO HOME OR SELFCARE Is pt being admited?: Yes Does the pt Need Aspirin: No Condition: Stable Instructions: Generalized Anxiety Disorder (ED), Anxiety (ED) Additional Instructions: Patient to follow-up with primary care in 2-3 days. Patient to take Tylenol or ibuprofen when necessary for pain. Patient to return to ER if condition worsens. Patient to see a psychiatrist or psychologist within 2-3 days.. Patient to increase water. Patient to rest. Patient to continue all meds. Referrals: KENYATTA MCKAY MD [Primary Care Provider] - 2-3 Days Time of Disposition: 06:09
[2018-11-24 02:50] LABS: Basophils % (Auto) 0.3 % (0.0-1.8); Eosinophils % (Auto) 0.5 % (0.0-4.3); Hematocrit 35.7 % (30.3-42.9); Hemoglobin 12.2 gm/dl (10.1-14.3); Lymphocytes # (Auto) 1.8 K/mm3 (1.2-5.4); Lymphocytes % (Auto) 25.3 % (13.4-35.0); Mean Corpuscular HGB Conc 34 % (30-34); Mean Corpuscular Volume 88 fl (79-97); Monocytes # (Auto) 0.5 K/mm3 (0.0-0.8); Monocytes % (Auto) 6.6 % (0.0-7.3); Platelet Count 352 K/mm3 (140-440); Red Blood Count 4.07 M/mm3 (3.65-5.03); Red Cell Distribution Width 14.2 % (13.2-15.2)
[2018-11-24 03:23] LABS: Alanine Aminotransferase 16 units/L (7-56); Albumin 4.1 g/dL (3.9-5); BUN/Creatinine Ratio 12; Blood Urea Nitrogen 11 mg/dL (7-17); Calcium 9.6 mg/dL (8.4-10.2); Hemolysis Index 23
[2018-11-24 03:43] LABS: Creatine Kinase MB < 1.0 ng/mL (0.0-4.0)
[2018-11-24] MEDS ORDERED: TYLENOL PO ONE (04:40)
[2018-11-24] MEDS ORDERED: TYLENOL ONE (04:45)
--- NOTE | 2018-11-24 05:56 | Cat Scan Report ---
PROCEDURE: CT ANGIO CHEST TECHNIQUE: Computerized tomographic angiography of the chest was performed after the IV injection of iodinated nonionic contrast including image processing. The image data was postprocessed using 2-di mensional multiplanar reformatted (MPR) and 3-dimensional (MIP and/or volume rendered) techniques. Au tomated exposure control, adjustment of mA and/or kV according to patient size, or iterative reconstr uction dose optimization techniques were utilized. CT DOSE LENGTH PRODUCT: 598.7 mGycm HISTORY: sob/ tachy COMPARISONS: Chest radiograph 11/12/2018 . FINDINGS: Normal caliber main pulmonary artery. No central or large segmental pulmonary embolism. Contrast opac ification of the more peripheral pulmonary arterial tree isn't sufficient for more detailed evaluatio n of pulmonary embolism. No pericardial effusion. Thoracic aorta is normal in course and caliber. Incidentally noted aberrant right subclavian artery. No periaortic fluid or stranding. No pneumothorax, effusion or focal airspace disease. The central airways are patent. No bronchiectasi s. Imaged portion of the upper abdomen is unremarkable. The superficial soft tissues are unremarkable. No acute bony abnormality or worrisome osseous lesions identified. IMPRESSION: No centrilobular segmental pulmonary embolism or other acute finding. This document is electronically signed by Dillon Moncada MD., November 24 2018 05:53:45 AM ET
[2018-11-24 06:27] VITALS: BP 110/74
== END 2018-11-24 06:25 | disposition home or self-care (01) ==
LOC: ED 23:15
DX: R06.02 Shortness of breath (principal); R00.0 Tachycardia, unspecified; R00.2 Palpitations; F41.0 Panic disorder [episodic paroxysmal anxiety]; I10 Essential (primary) hypertension; Z79.899 Other long term (current) drug therapy; Z98.51 Tubal ligation status
CPT/HCPCS: 36415; 36569; 71275; 80053; 82550; 82553; 85025; 85379; 93005; 99284; Q9967

== ENCOUNTER 2018-11-28 23:20 | Emergency (ER) | payer OTHER ==
[2018-11-29 00:31] LABS: BUN/Creatinine Ratio 11; Blood Urea Nitrogen 11 mg/dL (7-17); Hemolysis Index 35
[2018-11-29 00:36] LABS: Hematocrit 37.6 % (30.3-42.9); Mean Corpuscular HGB Conc 35 % (30-34); Mean Corpuscular Volume 89 fl (79-97); Platelet Count 388 K/mm3 (140-440); Red Blood Count 4.22 M/mm3 (3.65-5.03); Red Cell Distribution Width 14.3 % (13.2-15.2)
--- NOTE | 2018-11-29 07:30 | Emergency Department Report ---
ED General Adult HPI - General Chief complaint: Dizziness Stated complaint: LOW GLUCOSE LEVEL Source: patient Mode of arrival: Ambulatory Limitations: No Limitations - History of Present Illness Initial comments: Pt is a 33 yo female who presents to the ED with c/o a brief episode of ligthheadness that occurred yesterday around 2PM. She states that she was feeling "faint and thought her sugar was too low." she denies ever having issues with hypoglycemia in the past, she has no hx of DM. the patient states that EMS took her blood glucose and it was 67. she states she was given glucose by EMS. she denies any symptoms at all currently. she denies any MAYFIELD, vision changes, numbness, unilateral weakness, palpitations, CP, dizziness, or SOB. she states she has a PMHx of HTN and takes hctz-lisinopril. she states she has not yet taken her blood pressure medication this morning. she states she has an appointment with her orthophoto tech/draftsman Dr. Lee Pham today. - Related Data Previous Rx's Medication Instructions Recorded Last Taken Type hydrOXYzine PAMOATE [Vistaril] 25 mg PO Q6HR PRN #20 capsule 09/02/18 Unknown Rx diphenhydrAMINE [Benadryl CAP] 25 mg PO Q6HR PRN #30 capsule 10/21/18 Unknown Rx Ibuprofen [Motrin 800 MG tab] 800 mg PO Q8HR PRN #15 tablet 10/24/18 Unknown Rx Famotidine [Pepcid] 20 mg PO DAILY #14 tablet 11/10/18 Unknown Rx Amoxicillin/Potassium Clav 1 each PO Q12H #20 tablet 11/12/18 Unknown Rx [Augmentin 875-125 Tablet] Ibuprofen [Motrin] 800 mg PO Q8HR PRN #20 tablet 11/12/18 Unknown Rx hydrOXYzine PAMOATE [Vistaril] 50 mg PO Q8H PRN #30 capsule 11/12/18 Unknown Rx Allergies Allergy/AdvReac Type Severity Reaction Status Date / Time No Known Allergies Allergy Verified 11/09/18 20:45 ED Review of Systems ROS: Stated complaint: LOW GLUCOSE LEVEL Other details as noted in HPI Comment: All other systems reviewed and negative ED Past Medical Hx - Past Medical History Previous Medical History?: Yes Hx Hypertension: Yes Hx Psychiatric Treatment: Yes (anxiety) Additional medical history: wearing heart monitor for palpations - Surgical History Past Surgical History?: Yes Additional Surgical History: Tubal ligation - Social History Smoking Status: Never Smoker Substance Use Type: None - Medications Home Medications: Home Medications Medication Instructions Recorded Confirmed Last Taken Type hydrOXYzine PAMOATE [Vistaril] 25 mg PO Q6HR PRN #20 capsule 09/02/18 Unknown Rx diphenhydrAMINE [Benadryl CAP] 25 mg PO Q6HR PRN #30 capsule 10/21/18 Unknown Rx Ibuprofen [Motrin 800 MG tab] 800 mg PO Q8HR PRN #15 tablet 10/24/18 Unknown Rx Famotidine [Pepcid] 20 mg PO DAILY #14 tablet 11/10/18 Unknown Rx Amoxicillin/Potassium Clav 1 each PO Q12H #20 tablet 11/12/18 Unknown Rx [Augmentin 875-125 Tablet] Ibuprofen [Motrin] 800 mg PO Q8HR PRN #20 tablet 11/12/18 Unknown Rx hydrOXYzine PAMOATE [Vistaril] 50 mg PO Q8H PRN #30 capsule 11/12/18 Unknown Rx ED Physical Exam - General Limitations: No Limitations General appearance: alert, in no apparent distress - Head Head exam: Present: atraumatic, normocephalic - Eye Eye exam: Present: normal appearance, PERRL, EOMI - ENT ENT exam: Present: mucous membranes moist - Respiratory Respiratory exam: Present: normal lung sounds bilaterally. Absent: respiratory distress, wheezes, rales, rhonchi, stridor, chest wall tenderness, accessory muscle use, decreased breath sounds, prolonged expiratory - Cardiovascular Cardiovascular Exam: Present: regular rate, normal rhythm, normal heart sounds. Absent: systolic murmur, diastolic murmur, rubs, gallop - Neurological Exam Neurological exam: Present: alert, oriented X3, CN II-XII intact, normal gait, other (5/5 strength in the BUE/BLE, no facial asymmetry, equal quality assurance monitor strength, sensation intact, no focal neuro deficit). Absent: motor sensory deficit - Psychiatric Psychiatric exam: Present: normal affect, normal mood - Skin Skin exam: Present: warm, dry, intact ED Course Vital Signs 11/28/18 11/29/18 23:25 09:19 Temperature 98.0 F Pulse Rate 94 H 70 Respiratory 18 20 Rate Blood Pressure 107/77 Blood Pressure 130/80 [Right] O2 Sat by Pulse 100 97 Oximetry ED Medical Decision Making - Lab Data Result diagrams: 11/28/18 23:57 11/28/18 23:57 Lab Results 11/28/18 11/28/18 11/28/18 Range/Units 23:34 23:57 23:57 WBC 8.2 (4.5-11.0) K/mm3 RBC 4.22 (3.65-5.03) M/mm3 Hgb 13.0 (10.1-14.3) gm/dl Hct 37.6 (30.3-42.9) % MCV 89 (79-97) fl MCH 31 (28-32) pg MCHC 35 H (30-34) % RDW 14.3 (13.2-15.2) % Plt Count 388 (140-440) K/mm3 Lymph % (Auto) Dental Hygienist Mobile Coordinator [place] % (Auto) Dental Hygienist Mobile Coordinator Eos % (Auto) Dental Hygienist Mobile Coordinator Baso % (Auto) Dental Hygienist Mobile Coordinator Lymph # Dental Hygienist Mobile Coordinator [place] # Dental Hygienist Mobile Coordinator Eos # Dental Hygienist Mobile Coordinator Baso # Dental Hygienist Mobile Coordinator Seg Neutrophils % Dental Hygienist Mobile Coordinator Seg Neutrophils # Dental Hygienist Mobile Coordinator Sodium 140 (137-145) mmol/L Potassium 3.6 (3.6-5.0) mmol/L Chloride 97.0 L (98-107) mmol/L Carbon Dioxide 23 (22-30) mmol/L Anion Gap 24 mmol/L BUN 11 (7-17) mg/dL Creatinine 1.0 (0.7-1.2) mg/dL Estimated GFR > 60 ml/min BUN/Creatinine Ratio 11 % Glucose 100 (65-100) mg/dL POC Glucose 95 (70-105) Calcium 10.0 (8.4-10.2) mg/dL HCG, Qual (Negative) 11/28/18 Range/Units 23:57 WBC (4.5-11.0) K/mm3 RBC (3.65-5.03) M/mm3 Hgb (10.1-14.3) gm/dl Hct (30.3-42.9) % MCV (79-97) fl MCH (28-32) pg MCHC (30-34) % RDW (13.2-15.2) % Plt Count (140-440) K/mm3 Lymph % (Auto) [place] % (Auto) Eos % (Auto) Baso % (Auto) Lymph # [place] # Eos # Baso # Seg Neutrophils % Seg Neutrophils # Sodium (137-145) mmol/L Potassium (3.6-5.0) mmol/L Chloride (98-107) mmol/L Carbon Dioxide (22-30) mmol/L Anion Gap mmol/L BUN (7-17) mg/dL Creatinine (0.7-1.2) mg/dL Estimated GFR ml/min BUN/Creatinine Ratio % Glucose (65-100) mg/dL POC Glucose (70-105) Calcium (8.4-10.2) mg/dL HCG, Qual Negative (Negative) Vital Signs 11/28/18 23:25 Temperature 98.0 F Pulse Rate 94 H Respiratory 18 Rate Blood Pressure 107/77 O2 Sat by Pulse 100 Oximetry orthostatic VS: BP laying 130/80 BP sitting 132/84 standing 131/79 - EKG Data EKG shows normal: sinus rhythm, axis, intervals, QRS complexes, ST-T waves Rate: normal - Medical Decision Making Pt is a 33 yo female who presents to the ED with c/o a brief episode of ligthheadness that occurred yesterday around 2PM. She states that she was feeling "faint and thought her sugar was too low." she denies ever having issues with hypoglycemia in the past, she has no hx of DM. the patient states that EMS took her blood glucose and it was 67. she states she was given glucose by EMS. she denies any symptoms at all currently. she denies any MAYFIELD, vision changes, numbness, unilateral weakness, palpitations, CP, dizziness, or SOB. she states she has a PMHx of HTN and takes hctz-lisinopril. she states she has not yet taken her blood pressure medication this morning. she states she has an appointment with her orthophoto tech/draftsman Dr. Lee Pham today. vitals are normal. labs are WNL. accucheck 95. on BMP glucose is 100. orthostatic vitals with normal blood pressure. EKG is normal. no neuro deficits on exam. pt is asymptomatic. discussed with pt to begin to keep a log of her blood pressure and check several times throughout the day and show this log to her orthophoto tech/draftsman and primary care doctor, to evaluate if she needs adjustments to her blood pressure medication. advised to keep her appt with her orthophoto tech/draftsman. follow up with her PCP in the next 2-3 days. drink plenty of fluids. return to the emergency room for any new or worsening symptoms. Critical care attestation.: If time is entered above; I have spent that time in minutes in the direct care of this critically ill patient, excluding procedure time. ED Disposition Clinical Impression: Lightheadedness Disposition: DC-01 TO HOME OR SELFCARE Is pt being admited?: No Does the pt Need Aspirin: No Condition: Stable Instructions: Lightheadedness (ED) Additional Instructions: Please follow up with your primary care doctor in the next 2-3 days. keep your appointment with your orthophoto tech/draftsman. continue to drink plenty of fluids. begin to keep a blood pressure log. return to the emergency room for any new or worsening symptoms. Referrals: SAUD BRAUN MD [Primary Care Provider] - 2-3 Days Time of Disposition: 09:04 Print Language: [place]
[2018-11-29 09:30] VITALS: BP 130/80
== END 2018-11-29 09:19 | disposition home or self-care (01) ==
LOC: ED 23:20
DX: R42 Dizziness and giddiness (principal); I10 Essential (primary) hypertension; F41.9 Anxiety disorder, unspecified; Z98.51 Tubal ligation status; Z79.01 Long term (current) use of anticoagulants; Z79.899 Other long term (current) drug therapy
CPT/HCPCS: 36415; 80048; 82962; 84703; 85025; 93005; 93010; 99283

== ENCOUNTER 2018-11-29 18:44 | Emergency (ER) | payer OTHER ==
--- NOTE | 2018-11-29 19:14 | Event Note ---
ED Screening Note ED Screening Note: NO HI NO SI 7TH VISIT THIS MONTH FOR SAME WILL HAVE MHE CONDUCTED This initial assessment/diagnostic orders/clinical plan/treatment(s) is/are subject to change based on patients health status, clinical progression and re- assessment by fellow clinical providers in the ED. Further treatment and workup at subsequent clinical providers discretion. Patient/guardian urged not to elope from the ED as their condition may be serious if not clinically assessed and managed. Initial orders include:
[2018-11-29 20:48] LABS: HCG Qualitative,Urine Negative (Negative)
[2018-11-29 21:06] LABS: Bacteria,Urine 2+ /HPF (Negative); Bilirubin,Urine NEG (Negative); Blood,Urine SM (Negative); Color,Urine Yellow (Yellow); Mucus,Urine 3+ /HPF; Protein,Urine <15 mg/dL mg/dL (Negative); Urobilinogen,Urine < 2.0 mg/dL (<2.0)
[2018-11-29 21:11] LABS: Amphetamine Screen,Urine PRESUMPTIVE NEGATIVE; Benzodiazepines Screen,Urine PRESUMPTIVE NEGATIVE; Cannabinoid Screen,Urine PRESUMPTIVE NEGATIVE; Cocaine Screen,Urine PRESUMPTIVE NEGATIVE; Methadone Screen,Urine PRESUMPTIVE NEGATIVE; Opiate Screen,Urine PRESUMPTIVE NEGATIVE
[2018-11-30 00:18] VITALS: BP 97/65
[2018-11-30 00:43] LABS: Basophils # (Auto) 0.1 K/mm3 (0.0-0.1); Basophils % (Auto) 0.7 % (0.0-1.8); Eosinophils # (Auto) 0.1 K/mm3 (0.0-0.4); Eosinophils % (Auto) 0.9 % (0.0-4.3); Hematocrit 39.2 % (30.3-42.9); Hemoglobin 13.5 gm/dl (10.1-14.3); Lymphocytes # (Auto) 2.3 K/mm3 (1.2-5.4); Mean Corpuscular HGB Conc 34 % (30-34); Mean Corpuscular Volume 88 fl (79-97); Monocytes # (Auto) 0.5 K/mm3 (0.0-0.8); Platelet Count 433 K/mm3 (140-440); Red Blood Count 4.45 M/mm3 (3.65-5.03); Red Cell Distribution Width 14.2 % (13.2-15.2)
[2018-11-30 01:11] LABS: Alanine Aminotransferase 19 units/L (7-56); Albumin 4.8 g/dL (3.9-5); BUN/Creatinine Ratio 13; Blood Urea Nitrogen 14 mg/dL (7-17); Calcium 10.5 mg/dL (8.4-10.2); Hemolysis Index 7
[2018-11-30] MEDS ORDERED: K-DUR PO ONE (01:15)
--- NOTE | 2018-11-30 01:38 | Emergency Department Report ---
HPI - General Chief Complaint: Arrhythmia/Palpitations Time Seen by Provider: 11/29/18 23:55 - HPI HPI: 33-year-old -[place] female presents to the emergency department with a complaint of some palpitations and anxiety. Patient feels like her heart is racing. The patient is well known to myself and this department as she has been here multiple times in the past including 7 times in the past month for similar symptoms. The last time I saw the patient she was wearing a heart monitor. She says that she saw her instructor extension work today, Dr. Judith Pham, who has started her on metoprolol. She does have a past medical history of hypertension. She denies any tobacco or illicit drug use. No recent travel or sick contacts at home. ED Past Medical Hx - Past Medical History Hx Hypertension: Yes Hx Psychiatric Treatment: Yes (anxiety) Additional medical history: wearing heart monitor for palpations - Surgical History Additional Surgical History: Tubal ligation - Social History Smoking Status: Never Smoker Substance Use Type: None - Medications Home Medications: Home Medications Medication Instructions Recorded Confirmed Last Taken Type hydrOXYzine PAMOATE [Vistaril] 25 mg PO Q6HR PRN #20 capsule 09/02/18 Unknown Rx diphenhydrAMINE [Benadryl CAP] 25 mg PO Q6HR PRN #30 capsule 10/21/18 Unknown Rx Ibuprofen [Motrin 800 MG tab] 800 mg PO Q8HR PRN #15 tablet 10/24/18 Unknown Rx Famotidine [Pepcid] 20 mg PO DAILY #14 tablet 11/10/18 Unknown Rx Amoxicillin/Potassium Clav 1 each PO Q12H #20 tablet 11/12/18 Unknown Rx [Augmentin 875-125 Tablet] Ibuprofen [Motrin] 800 mg PO Q8HR PRN #20 tablet 11/12/18 Unknown Rx hydrOXYzine PAMOATE [Vistaril] 50 mg PO Q8H PRN #30 capsule 11/12/18 Unknown Rx ED Review of Systems ROS: Stated complaint: RAPID HEART BEAT Other details as noted in HPI Comment: All other systems reviewed and negative Constitutional: denies: chills, fever Eyes: denies: eye pain, vision change ENT: denies: ear pain, throat pain Respiratory: denies: cough, shortness of breath Cardiovascular: palpitations. denies: edema Gastrointestinal: denies: abdominal pain, vomiting Genitourinary: denies: dysuria, discharge Musculoskeletal: denies: back pain, arthralgia Skin: denies: rash, lesions Neurological: denies: headache, weakness Physical Exam - Physical Exam Vital Signs: Vital Signs 11/29/18 11/30/18 19:33 00:16 Temperature 98.2 F 97.8 F Pulse Rate 94 H 97 H Respiratory 18 16 Rate Blood Pressure 112/74 Blood Pressure 97/65 [Left] O2 Sat by Pulse 100 97 Oximetry Physical Exam: GENERAL: The patient is well-developed well-nourished. HENT: Normocephalic. Atraumatic. Patient has moist mucous membranes. EYES: Extraocular motions are intact. NECK: Supple. Trachea is midline. CHEST/LUNGS: Clear to auscultation. There is no respiratory distress noted. HEART/CARDIOVASCULAR: Regular. There is no tachycardia. There is no murmur. ABDOMEN: Abdomen is soft, nontender. Patient has normal bowel sounds. There is no abdominal distention. SKIN: Skin is warm and dry. NEURO: The patient is awake, alert, and oriented. The patient is cooperative. The patient has no focal neurologic deficits. The patient has normal speech. MUSCULOSKELETAL: There is no tenderness or deformity. There is no limitation range of motion. There is no evidence of acute injury. ED Course Vital Signs 11/29/18 11/30/18 19:33 00:16 Temperature 98.2 F 97.8 F Pulse Rate 94 H 97 H Respiratory 18 16 Rate Blood Pressure 112/74 Blood Pressure 97/65 [Left] O2 Sat by Pulse 100 97 Oximetry ED Medical Decision Making - Lab Data Result diagrams: 11/30/18 00:23 11/30/18 00:23 - EKG Data -: EKG Interpreted by Ia EKG shows normal: sinus rhythm, axis, intervals, QRS complexes, ST-T waves Rate: normal - EKG Data When compared to previous EKG there are: no significant change Interpretation: normal EKG, unchanged when compared t (11/24/18) - Medical Decision Making This patient presents to the emergency department with a complaint of some anx iety, palpitations, nonspecific lightheadedness. The patient has been seen here multiple times for these same set of symptoms. She has recently had a Holter monitor and even saw her instructor extension work today and was started on metoprolol. The patient has had a recent CT angiography of the chest was negative for any PE, dissection, aneurysm or any other acute process. Today, the patient's labs have been unremarkable including CBC, metabolic panel, TSH and troponin. The patient refused any chest x-ray as she agrees that she has had a lot of imaging done in the recent past and says that her instructor extension work told her not to get any more imaging completed. Her vital signs are stable throughout her ED course. The patient was reevaluated multiple times and was seen resting comfortably, even sleeping. For all these reasons, the patient appears safe for discharge home at this time. She has good follow-up with primary care and cardiology. She will return to the ER with any worsening of her symptoms or any acute distress. - Differential Diagnosis dysrhythmia, anxiety, electrolyte abnormalities, thyroid dysfunction Critical Care Time: No Critical care attestation.: If time is entered above; I have spent that time in minutes in the direct care of this critically ill patient, excluding procedure time. ED Disposition Clinical Impression: Anxiety, Palpitations, Lightheadedness Disposition: DC-01 TO HOME OR SELFCARE Is pt being admited?: No Condition: Stable Instructions: Palpitations (ED), Anxiety (ED) Additional Instructions: Please follow-up with your primary care physician, instructor extension work, and psychiatrist, in the next 2 days. Return to the emergency Department with any worsening of your symptoms or any acute distress. Referrals: ALEAH PHAM MD [Staff Physician] - 3-5 Days Primary Care Provider, Your [Other] - 3-5 Days Time of Disposition: 01:38
== END 2018-11-30 02:09 | disposition home or self-care (01) ==
LOC: ED 18:44
DX: F41.9 Anxiety disorder, unspecified (principal); R00.2 Palpitations; R42 Dizziness and giddiness; I10 Essential (primary) hypertension; Z98.51 Tubal ligation status; Z79.899 Other long term (current) drug therapy
CPT/HCPCS: 36415; 80053; 80307; 81001; 81025; 84443; 85025; 87086; 93005; 93010

== ENCOUNTER 2018-12-02 22:36 | Emergency (ER) | payer OTHER ==
[2018-12-02 22:45] VITALS: BP 122/85
[2018-12-02] MEDS ORDERED: ASPIRIN PO ONE (23:40)
[2018-12-03 00:11] LABS: Basophils % (Auto) 0.7 % (0.0-1.8); Eosinophils # (Auto) 0.1 K/mm3 (0.0-0.4); Eosinophils % (Auto) 0.8 % (0.0-4.3); Hematocrit 35.8 % (30.3-42.9); Hemoglobin 11.8 gm/dl (10.1-14.3); Lymphocytes % (Auto) 31.6 % (13.4-35.0); Mean Corpuscular HGB Conc 33 % (30-34); Mean Corpuscular Volume 89 fl (79-97); Monocytes # (Auto) 0.4 K/mm3 (0.0-0.8); Monocytes % (Auto) 5.8 % (0.0-7.3); Platelet Count 405 K/mm3 (140-440); Red Blood Count 4.03 M/mm3 (3.65-5.03); Red Cell Distribution Width 14.3 % (13.2-15.2)
[2018-12-03 00:33] LABS: BUN/Creatinine Ratio 16; Blood Urea Nitrogen 18 mg/dL (7-17); Calcium 9.6 mg/dL (8.4-10.2); Hemolysis Index 4
--- NOTE | 2018-12-03 04:37 | Emergency Department Report ---
ED General Adult HPI - General Chief complaint: Chest Pain Stated complaint: SOB Time Seen by Provider: 12/03/18 04:31 Source: patient Mode of arrival: Ambulatory Limitations: No Limitations - History of Present Illness Initial comments: 33-year-old -[place]ub[place] female, cardiac arrhythmia the care of Dr. Pham of cardiology recently started on past emergency department complaining of chest heaviness and shortness of breath associated with palpitations, which was experiencing today. States she was having frequent episodes. She was started on came in because her heart rate sped up again tonight, so she wanted to get it checked. She was there was nothing patient states she care of cardiology. She has had a recent stress test and echo in September 2018. There were no abnormal findings. Started on Toprol to control with just started this past Sunday and were palpitations/racing heart episode today. Reports mild chest pressure, presyncope or dizziness. He denies any illicit drug use or excessive caffeine Radiation: non-radiation Quality: aching Consistency: constant Improves with: none Worsens with: none Associated Symptoms: denies: chest pain, malaise, nausea/vomiting, syncope, weakness - Related Data Previous Rx's Medication Instructions Recorded Last Taken Type hydrOXYzine PAMOATE [Vistaril] 25 mg PO Q6HR PRN #20 capsule 09/02/18 Unknown Rx diphenhydrAMINE [Benadryl CAP] 25 mg PO Q6HR PRN #30 capsule 10/21/18 Unknown Rx Ibuprofen [Motrin 800 MG tab] 800 mg PO Q8HR PRN #15 tablet 10/24/18 Unknown Rx Famotidine [Pepcid] 20 mg PO DAILY #14 tablet 11/10/18 Unknown Rx Amoxicillin/Potassium Clav 1 each PO Q12H #20 tablet 11/12/18 Unknown Rx [Augmentin 875-125 Tablet] Ibuprofen [Motrin] 800 mg PO Q8HR PRN #20 tablet 11/12/18 Unknown Rx hydrOXYzine PAMOATE [Vistaril] 50 mg PO Q8H PRN #30 capsule 11/12/18 Unknown Rx Allergies Allergy/AdvReac Type Severity Reaction Status Date / Time No Known Allergies Allergy Verified 11/29/18 18:45 ED Review of Systems ROS: Stated complaint: SOB Other details as noted in HPI Constitutional: denies: chills, fever Eyes: denies: eye pain, eye discharge, vision change ENT: denies: ear pain, throat pain Respiratory: denies: cough, shortness of breath, wheezing Cardiovascular: palpitations. denies: chest pain Endocrine: no symptoms reported Gastrointestinal: denies: abdominal pain, nausea, diarrhea Genitourinary: denies: urgency, dysuria, discharge Musculoskeletal: denies: back pain, joint swelling, arthralgia Skin: denies: rash, lesions Neurological: denies: headache, weakness, paresthesias Psychiatric: denies: anxiety, depression Hematological/Lymphatic: denies: easy bleeding, easy bruising ED Past Medical Hx - Past Medical History Previous Medical History?: Yes Hx Hypertension: Yes Hx Psychiatric Treatment: Yes (anxiety) Additional medical history: Had a heart monitor for palpations - Surgical History Past Surgical History?: Yes Additional Surgical History: Tubal removed - Social History Smoking Status: Current Every Day Smoker Substance Use Type: Alcohol - Medications Home Medications: Home Medications Medication Instructions Recorded Confirmed Last Taken Type hydrOXYzine PAMOATE [Vistaril] 25 mg PO Q6HR PRN #20 capsule 09/02/18 Unknown Rx diphenhydrAMINE [Benadryl CAP] 25 mg PO Q6HR PRN #30 capsule 10/21/18 Unknown Rx Ibuprofen [Motrin 800 MG tab] 800 mg PO Q8HR PRN #15 tablet 10/24/18 Unknown Rx Famotidine [Pepcid] 20 mg PO DAILY #14 tablet 11/10/18 Unknown Rx Amoxicillin/Potassium Clav 1 each PO Q12H #20 tablet 11/12/18 Unknown Rx [Augmentin 875-125 Tablet] Ibuprofen [Motrin] 800 mg PO Q8HR PRN #20 tablet 11/12/18 Unknown Rx hydrOXYzine PAMOATE [Vistaril] 50 mg PO Q8H PRN #30 capsule 11/12/18 Unknown Rx ED Physical Exam - General Limitations: No Limitations General appearance: alert, in no apparent distress - Head Head exam: Present: atraumatic, normocephalic - Eye Eye exam: Present: normal appearance, PERRL Pupils: Present: normal accommodation - ENT ENT exam: Present: normal exam, normal orophraynx, mucous membranes moist - Neck Neck exam: Present: normal inspection, full ROM - Respiratory Respiratory exam: Present: normal lung sounds bilaterally. Absent: respiratory distress, wheezes, rhonchi, stridor - Cardiovascular Cardiovascular Exam: Present: regular rate, normal rhythm. Absent: irregular rhythm, systolic murmur, diastolic murmur, rubs, gallop - GI/Abdominal GI/Abdominal exam: Present: soft, normal bowel sounds. Absent: tenderness, guarding - Extremities Exam Extremities exam: Present: normal inspection, normal capillary refill - Back Exam Back exam: Present: normal inspection. Absent: CVA tenderness (R), CVA tenderness (L) - Neurological Exam Neurological exam: Present: alert, oriented X3, CN II-XII intact, normal gait - Psychiatric Psychiatric exam: Present: normal affect, normal mood. Absent: anxious, flat affect - Skin Skin exam: Present: warm, dry, intact, normal color. Absent: rash ED Course Vital Signs 12/02/18 12/02/18 22:39 22:42 Temperature 98.2 F 98.5 F Pulse Rate 86 83 Respiratory 18 18 Rate Blood Pressure 122/85 122/85 O2 Sat by Pulse 99 99 Oximetry ED Medical Decision Making - Lab Data Result diagrams: 12/02/18 23:52 12/02/18 23:52 - Medical Decision Making 33-year-old female with no history of palpitations going on the care of cardiology. No new symptomology for continued palpitations despite recently starting her Toprol. She is alert. Impression of Toprol would eliminate issues. I explained to her the mechanism of the beta noel in conjunction with controlling these episodic heart flutters. Laboratory data that revealed any significant or acute pathology advisor to discuss this further with her lecturer in computer science, Dr. Pham for further evaluation and treatment recommendations. She is currently in no acute distress, speaking in full sentences, tolerated by mouth no signs of any infectious processes Critical care attestation.: If time is entered above; I have spent that time in minutes in the direct care of this critically ill patient, excluding procedure time. ED Disposition Clinical Impression: Palpitations, Tachycardia Disposition: -01 TO HOME OR SELFCARE Is pt being admited?: No Does the pt Need Aspirin: No Condition: Stable Instructions: Palpitations (ED) Additional Instructions: Please follow through, please follow to lecturer in computer science to discuss possible adjustment in medication regimen Referrals: PRIMARY CARE, [Primary Care Provider] - 3-5 Days ALEAH PHAM MD [Staff Physician] - 3-5 Days
== END 2018-12-03 05:38 | disposition home or self-care (01) ==
LOC: ED 22:36
DX: F41.9 Anxiety disorder, unspecified (principal); R00.0 Tachycardia, unspecified; R06.02 Shortness of breath; F17.200 Nicotine dependence, unspecified, uncomplicated; I10 Essential (primary) hypertension; Z98.51 Tubal ligation status
CPT/HCPCS: 36415; 80048; 84484; 85025; 93005; 93010

== ENCOUNTER 2018-12-07 20:04 | Emergency (ER) | payer OTHER ==
--- NOTE | 2018-12-07 20:19 | Event Note ---
ED Screening Note Date of service: 12/07/18 Time: 20:17 ED Screening Note: 33 y/o female complains of dizziness since this morning. No N/V LMP 10/25/18. Earlier menopause. History on HTN. This initial assessment/diagnostic orders/clinical plan/treatment(s) is/are subject to change based on patients health status, clinical progression and re- assessment by fellow clinical providers in the ED. Further treatment and workup at subsequent clinical providers discretion. Patient/guardian urged not to elope from the ED as their condition may be serious if not clinically assessed and managed. Initial orders include:
--- NOTE | 2018-12-07 22:27 | Emergency Department Report ---
ED General Adult HPI - General Chief complaint: Dizziness Stated complaint: HBP/DIZZY Time Seen by Provider: 12/07/18 22:17 Source: patient, RN notes reviewed, old records reviewed Mode of arrival: Ambulatory Limitations: No Limitations - History of Present Illness Initial comments: This is a 33-year-old female. The patient is known to this provider previously. The patient follows with cardiology, Dr. Pham. I have personally evaluated this patient in the past. Please see my note from 11/12/2018 for complete details of the patient's past medical history. Patient currently takes metoprolol, 25 mg daily. She presents to the emergency room today with a complaint of painless hypertension. She reports a blood pressure 155/100. She denies physical pain. She denies other complaints. She endorses compliance with her medications. She denies taking stimulants such as caffeine, energy drinks, or red bowl. Her sensation of hypertension and is intermittent. It does not radiate anywhere. It is painless. He does not have exacerbating or liver factors. Patient has had multiple extensive medical workups at this hospital, including negative d-dimer's, unremarkable laboratory studies, and CT scan of the chest which have been not suggestive of pulmonary emboli. -: Sudden Improves with: none Worsens with: none - Related Data Previous Rx's Medication Instructions Recorded Last Taken Type hydrOXYzine PAMOATE [Vistaril] 25 mg PO Q6HR PRN #20 capsule 09/02/18 Unknown Rx diphenhydrAMINE [Benadryl CAP] 25 mg PO Q6HR PRN #30 capsule 10/21/18 Unknown Rx Ibuprofen [Motrin 800 MG tab] 800 mg PO Q8HR PRN #15 tablet 10/24/18 Unknown Rx Famotidine [Pepcid] 20 mg PO DAILY #14 tablet 11/10/18 Unknown Rx Amoxicillin/Potassium Clav 1 each PO Q12H #20 tablet 11/12/18 Unknown Rx [Augmentin 875-125 Tablet] Ibuprofen [Motrin] 800 mg PO Q8HR PRN #20 tablet 11/12/18 Unknown Rx hydrOXYzine PAMOATE [Vistaril] 50 mg PO Q8H PRN #30 capsule 11/12/18 Unknown Rx Allergies Allergy/AdvReac Type Severity Reaction Status Date / Time No Known Allergies Allergy Verified 11/29/18 18:45 ED Review of Systems ROS: Stated complaint: HBP/DIZZY Other details as noted in HPI Comment: All other systems reviewed and negative ED Past Medical Hx - Past Medical History Previous Medical History?: Yes Hx Hypertension: Yes Hx Psychiatric Treatment: Yes (anxiety) Additional medical history: Had a heart monitor for palpations - Surgical History Past Surgical History?: Yes Additional Surgical History: Tubal removed - Social History Smoking Status: Never Smoker Substance Use Type: None - Medications Home Medications: Home Medications Medication Instructions Recorded Confirmed Last Taken Type hydrOXYzine PAMOATE [Vistaril] 25 mg PO Q6HR PRN #20 capsule 09/02/18 Unknown Rx diphenhydrAMINE [Benadryl CAP] 25 mg PO Q6HR PRN #30 capsule 10/21/18 Unknown Rx Ibuprofen [Motrin 800 MG tab] 800 mg PO Q8HR PRN #15 tablet 10/24/18 Unknown Rx Famotidine [Pepcid] 20 mg PO DAILY #14 tablet 11/10/18 Unknown Rx Amoxicillin/Potassium Clav 1 each PO Q12H #20 tablet 11/12/18 Unknown Rx [Augmentin 875-125 Tablet] Ibuprofen [Motrin] 800 mg PO Q8HR PRN #20 tablet 11/12/18 Unknown Rx hydrOXYzine PAMOATE [Vistaril] 50 mg PO Q8H PRN #30 capsule 11/12/18 Unknown Rx ED Physical Exam - General Limitations: No Limitations General appearance: alert, in no apparent distress - Head Head exam: Present: atraumatic, normocephalic - Eye Eye exam: Present: normal appearance, PERRL, EOMI, other (visual acuity intact to finger counting, color perception, reading at a close distance). Absent: nystagmus - ENT ENT exam: Present: normal exam, normal orophraynx, mucous membranes moist, normal external ear exam - Neck Neck exam: Present: normal inspection, full ROM. Absent: tenderness, meningismus - Respiratory Respiratory exam: Present: normal lung sounds bilaterally. Absent: respiratory distress - Cardiovascular Cardiovascular Exam: Present: regular rate, normal rhythm, normal heart sounds. Absent: bradycardia, tachycardia, irregular rhythm, systolic murmur, diastolic murmur, rubs, gallop - GI/Abdominal GI/Abdominal exam: Present: soft. Absent: distended, tenderness, guarding, rebound, rigid, pulsatile mass - Extremities Exam Extremities exam: Present: normal inspection, full ROM, other (2+ pulses noted in the bilateral upper, lower extremities. Compartments soft. No long bony tenderness. The pelvis is stable.). Absent: pedal edema, joint swelling, calf tenderness - Back Exam Back exam: Present: normal inspection, full ROM. Absent: tenderness, CVA tenderness (R), CVA tenderness (L), paraspinal tenderness, vertebral tenderness - Neurological Exam Neurological exam: Present: alert, oriented X3, CN II-XII intact, normal gait (there is no past-pointing. There is normal [id number]. There is a negative pronator drift.), other (Extraocular movements intact. Tongue midline. No faci al droop. Facial sensation intact to light touch in the V1, V2, V3 distribution bilaterally. 5 and 5 strength in 4 extremities.. Sensation is intact to light touch in 4 extremities.). Absent: motor sensory deficit - Psychiatric Psychiatric exam: Present: anxious - Skin Skin exam: Present: warm, dry, intact, normal color. Absent: rash ED Course Vital Signs 12/07/18 20:17 Temperature 98.5 F Pulse Rate 64 Respiratory 16 Rate Blood Pressure 140/91 O2 Sat by Pulse 99 Oximetry ED Medical Decision Making - Lab Data Vital Signs 12/07/18 12/07/18 12/07/18 20:17 23:12 23:13 Temperature 98.5 F 98.6 F Pulse Rate 64 61 Respiratory 16 17 17 Rate Blood Pressure 140/91 Blood Pressure 136/91 [Left] O2 Sat by Pulse 99 100 100 Oximetry - EKG Data -: EKG Interpreted by Ct EKG shows normal: sinus rhythm Rate: normal - EKG Data When compared to previous EKG there are: no significant change 12/07/18 23:16 This is a normal sinus rhythm, bradycardic, 60 bpm, normal axis, normal intervals, T-wave inversion V2, may be related to juvenile T-wave inversion versus lead placement, this is an abnormal EKG, this EKG is not consistent with ST elevation myocardial infarction - Medical Decision Making Differential diagnosis, including but not limited to: Hypertension, elevated blood pressure, mitral valve prolapse, anxiety, normal expected variations in human physiology Assessment and plan: 33-year-old female with complaint of hypertension. In the emergency room, the patient is afebrile with reassuring vital signs. Her physical exam today is unremarkable she appears quite comfortable, and is noted to be playing on a cellular phone when I walk into the room to examine her. Her physical exam today similar to prior physical examinations. She's had extensive laboratory and radiographic evaluation at this hospital done within the past 2 months. She does not appear to have an emergent medical condition at this time. Patient is reassured and given appropriate counseling and anticipatory guidance. She may follow-up with her outpatient primary care doctor or magnetizer. Critical care attestation.: If time is entered above; I have spent that time in minutes in the direct care of this critically ill patient, excluding procedure time. ED Disposition Clinical Impression: Blood pressure elevated without history of HTN Disposition: DC- TO HOME OR SELFCARE Is pt being admited?: No Does the pt Need Aspirin: No Condition: Stable Additional Instructions: Continue current outpatient medications. Avoid consumption of stimulating substances, such as caffeine, energy drinks, excessive sugar. Make certain to get at least 7-8 hours of good quality sleep every night. Follow up with her private magnetizer within the next month as scheduled. Return to the emergency room right away with new, worsening or different symptoms not present on the initial emergency room evaluation. Referrals: ALEAH PHAM MD [Staff Physician] - 3-5 Days
[2018-12-07 23:13] VITALS: BP 136/91
== END 2018-12-07 23:38 | disposition home or self-care (01) ==
LOC: ED 20:04
DX: I10 Essential (primary) hypertension (principal); F41.9 Anxiety disorder, unspecified; Z98.51 Tubal ligation status
CPT/HCPCS: 93005; 93010; 99282

== ENCOUNTER 2018-12-11 18:04 | Emergency (ER) | payer SELFPAY ==
[2018-12-11 18:11] VITALS: BP 127/87
--- NOTE | 2018-12-11 18:56 | Event Note ---
ED Screening Note Date of service: 12/11/18 Time: 18:51 ED Screening Note: 33 y/o female comes in hamzah that started this evening. She is currently on a Holter monitor. This initial assessment/diagnostic orders/clinical plan/treatment(s) is/are subject to change based on patients health status, clinical progression and re- assessment by fellow clinical providers in the ED. Further treatment and workup at subsequent clinical providers discretion. Patient/guardian urged not to elope from the ED as their condition may be serious if not clinically assessed and managed. Initial orders include:
--- NOTE | 2018-12-11 20:04 | Emergency Department Report ---
Blank Doc - Documentation Documentation: When I went to see the patient, patient was not in the room. Patient was called and instructed to return for further evaluation and treatment as her condition may be serious but patient stated she needed to leave. Patient was educated of my concerns and understands the risk factors. Patient left AGAINST MEDICAL ADVICE without me seeing or examining the patient.
== END 2018-12-11 19:30 | disposition left against medical advice (07) ==
LOC: ED 18:04
DX: I10 Essential (primary) hypertension (principal); Z53.21 Procedure and treatment not carried out due to patient leaving prior to being seen by health care provider

== ENCOUNTER 2018-12-17 19:19 | Emergency (ER) | payer OTHER ==
--- NOTE | 2018-12-17 20:12 | Event Note ---
ED Screening Note Date of service: 12/17/18 Time: 20:06 ED Screening Note: 33 y o female with HTN presents cc of taking her blood pressure medication metoprolol 25 mg once in the morning and once agian an hour ago BP stable pt is now cc of chest pain This initial assessment/diagnostic orders/clinical plan/treatment(s) is/are subject to change based on patients health status, clinical progression and re- assessment by fellow clinical providers in the ED. Further treatment and workup at subsequent clinical providers discretion. Patient/guardian urged not to elope from the ED as their condition may be serious if not clinically assessed and managed. Initial orders include: basic labs
[2018-12-17 21:59] VITALS: BP 109/73
[2018-12-17 22:44] LABS: Basophils % (Auto) 0.6 % (0.0-1.8); Eosinophils # (Auto) 0.1 K/mm3 (0.0-0.4); Eosinophils % (Auto) 1.2 % (0.0-4.3); Hematocrit 33.2 % (30.3-42.9); Hemoglobin 11.1 gm/dl (10.1-14.3); Lymphocytes # (Auto) 2.1 K/mm3 (1.2-5.4); Lymphocytes % (Auto) 32.7 % (13.4-35.0); Mean Corpuscular HGB Conc 33 % (30-34); Mean Corpuscular Volume 88 fl (79-97); Monocytes # (Auto) 0.3 K/mm3 (0.0-0.8); Platelet Count 301 K/mm3 (140-440); Red Blood Count 3.76 M/mm3 (3.65-5.03); Red Cell Distribution Width 14.6 % (13.2-15.2)
[2018-12-17 23:01] LABS: BUN/Creatinine Ratio 10; Blood Urea Nitrogen 10 mg/dL (7-17); Calcium 9.3 mg/dL (8.4-10.2); Hemolysis Index 9
--- NOTE | 2018-12-18 01:10 | Emergency Department Report ---
ED General Adult HPI - General Chief complaint: High BP Stated complaint: HIGH BP Time Seen by Provider: 12/17/18 20:05 Source: patient Mode of arrival: Ambulatory Limitations: No Limitations - History of Present Illness Initial comments: The patient is a 33-year-old [place] female with a history of hypertension who presents to the ED for evaluation after she took a double dose of her blood pressure medication metoprolol 25 mg 6 hours ago. Patient states that she has been feeling lightheaded after taking the medication for what she thought was elevated blood pressure. Patient denies dizziness, chest pain, shortness of breath, syncope, sore throat, palpitations, abdominal pain, nausea, vomiting, change in vision, neck pain or seizures MD Complaint: lightheadedness; elevated BP -: Sudden, hour(s) (6) Location: head Radiation: non-radiation Severity scale (0 -10): 0 Quality: dull Consistency: intermittent Improves with: none Worsens with: none Associated Symptoms: denies other symptoms. denies: confusion, chest pain, cough, diaphoresis, fever/chills, headaches, loss of appetite, malaise, nausea/vomiting, rash, seizure, shortness of breath, syncope, weakness Treatments Prior to Arrival: none - Related Data Previous Rx's Medication Instructions Recorded Last Taken Type hydrOXYzine PAMOATE [Vistaril] 25 mg PO Q6HR PRN #20 capsule 09/02/18 Unknown Rx diphenhydrAMINE [Benadryl CAP] 25 mg PO Q6HR PRN #30 capsule 10/21/18 Unknown Rx Ibuprofen [Motrin 800 MG tab] 800 mg PO Q8HR PRN #15 tablet 10/24/18 Unknown Rx Famotidine [Pepcid] 20 mg PO DAILY #14 tablet 11/10/18 Unknown Rx Amoxicillin/Potassium Clav 1 each PO Q12H #20 tablet 11/12/18 Unknown Rx [Augmentin 875-125 Tablet] Ibuprofen [Motrin] 800 mg PO Q8HR PRN #20 tablet 11/12/18 Unknown Rx hydrOXYzine PAMOATE [Vistaril] 50 mg PO Q8H PRN #30 capsule 11/12/18 Unknown Rx Allergies Allergy/AdvReac Type Severity Reaction Status Date / Time No Known Allergies Allergy Verified 11/29/18 18:45 ED Review of Systems ROS: Stated complaint: HIGH BP Other details as noted in HPI Constitutional: denies: chills, fever Eyes: denies: eye pain, eye discharge, vision change ENT: denies: ear pain, throat pain Respiratory: denies: cough, shortness of breath, wheezing Cardiovascular: denies: chest pain, palpitations Endocrine: no symptoms reported Gastrointestinal: denies: abdominal pain, nausea, diarrhea Genitourinary: denies: urgency, dysuria, discharge Musculoskeletal: denies: back pain, joint swelling, arthralgia Skin: denies: rash, lesions Neurological: other (lightheadedness). denies: headache, weakness, paresthesias Psychiatric: denies: anxiety, depression Hematological/Lymphatic: denies: easy bleeding, easy bruising ED Past Medical Hx - Past Medical History Previous Medical History?: Yes Hx Hypertension: Yes Hx Psychiatric Treatment: Yes (anxiety) Additional medical history: Had a heart monitor for palpations - Surgical History Past Surgical History?: Yes Additional Surgical History: Tubal removed - Social History Smoking Status: Never Smoker Substance Use Type: None - Medications Home Medications: Home Medications Medication Instructions Recorded Confirmed Last Taken Type hydrOXYzine PAMOATE [Vistaril] 25 mg PO Q6HR PRN #20 capsule 09/02/18 Unknown Rx diphenhydrAMINE [Benadryl CAP] 25 mg PO Q6HR PRN #30 capsule 10/21/18 Unknown Rx Ibuprofen [Motrin 800 MG tab] 800 mg PO Q8HR PRN #15 tablet 10/24/18 Unknown Rx Famotidine [Pepcid] 20 mg PO DAILY #14 tablet 11/10/18 Unknown Rx Amoxicillin/Potassium Clav 1 each PO Q12H #20 tablet 11/12/18 Unknown Rx [Augmentin 875-125 Tablet] Ibuprofen [Motrin] 800 mg PO Q8HR PRN #20 tablet 11/12/18 Unknown Rx hydrOXYzine PAMOATE [Vistaril] 50 mg PO Q8H PRN #30 capsule 11/12/18 Unknown Rx ED Physical Exam - General Limitations: No Limitations General appearance: alert, in no apparent distress - Head Head exam: Present: atraumatic, normocephalic, normal inspection - Eye Eye exam: Present: normal appearance, PERRL, EOMI Pupils: Present: normal accommodation - ENT ENT exam: Present: normal exam, normal orophraynx, mucous membranes moist, TM's normal bilaterally, normal external ear exam - Neck Neck exam: Present: normal inspection, full ROM - Respiratory Respiratory exam: Present: normal lung sounds bilaterally. Absent: respiratory distress, wheezes, rales, rhonchi, chest wall tenderness, accessory muscle use, decreased breath sounds, prolonged expiratory - Cardiovascular Cardiovascular Exam: Present: regular rate, normal rhythm, normal heart sounds. Absent: systolic murmur, diastolic murmur, rubs, gallop - GI/Abdominal GI/Abdominal exam: Present: soft, normal bowel sounds. Absent: tenderness, guarding, rebound, hyperactive bowel sounds, hypoactive bowel sounds, organomegaly - Rectal Rectal exam: Present: deferred - Extremities Exam Extremities exam: Present: normal inspection, full ROM, normal capillary refill - Back Exam Back exam: Present: normal inspection, full ROM. Absent: CVA tenderness (L), muscle spasm, vertebral tenderness - Neurological Exam Neurological exam: Present: alert, oriented X3, CN II-XII intact, normal gait, reflexes normal - Psychiatric Psychiatric exam: Present: normal affect, normal mood - Skin Skin exam: Present: warm, dry, intact, normal color. Absent: rash ED Course Vital Signs 12/17/18 12/17/18 12/17/18 19:37 20:06 21:57 Temperature 98.1 F 98.1 F 98.0 F Pulse Rate 68 67 Respiratory 18 16 16 Rate Blood Pressure 122/82 122/80 109/73 O2 Sat by Pulse 97 100 Oximetry - Reevaluation(s) Reevaluation #1: 12/18/18 01:21 Patient is alert and oriented 3 and is not in distress. Patient's vital signs are stable and unremarkable. Lab test results are unremarkable including troponin levels. EKG shows normal sinus rhythm with a ventricular rate of 78 bpm, and no ST or T-wave abnormalities. Patient was sent home and advised to continue taking her regular dose of metoprolol instead of a double dose, and to follow-up with her primary care physician in 2 days for reevaluation. Patient was however advised to return to the ED immediately if symptoms get worse. ED Medical Decision Making - Lab Data Result diagrams: 12/17/18 22:27 12/17/18 22:27 - EKG Data Rate: normal - EKG Data Interpretation: normal EKG 12/18/18 01:16 Normal sinus rhythm, ventricular rate of 78 bpm, no ST or T wave abnormalities - Medical Decision Making Patient is alert and oriented 3 and is not in distress. Patient's vital signs are stable and unremarkable. Lab test results are unremarkable including troponin levels. EKG shows normal sinus rhythm with a ventricular rate of 78 bpm, and no ST or T-wave abnormalities. Patient was sent home and advised to continue taking her regular dose of metoprolol instead of a double dose, and to follow-up with her primary care physician in 2 days for reevaluation. Patient was however advised to return to the ED immediately if symptoms get worse. - Differential Diagnosis Lightheadedness, elevated BP, anxiety Critical care attestation.: If time is entered above; I have spent that time in minutes in the direct care of this critically ill patient, excluding procedure time. ED Disposition Clinical Impression: Blood pressure elevated without history of HTN, Episodic lightheadedness Disposition: DC-01 TO HOME OR SELFCARE Is pt being admited?: No Does the pt Need Aspirin: No Condition: Stable Instructions: Hypertension (ED), Lightheadedness (ED) Additional Instructions: Take your regular medication as previously advised. Follow-up with your primary care physician in 2 days for reevaluation. Return to the ED immediately if symptoms get worse. Referrals: PRIMARY CARE, [Primary Care Provider] - 3-5 Days Time of Disposition: 01:06 Print Language: WELSH
== END 2018-12-18 02:09 | disposition home or self-care (01) ==
LOC: ED 19:19
DX: R42 Dizziness and giddiness (principal); I10 Essential (primary) hypertension; F41.9 Anxiety disorder, unspecified; Z98.51 Tubal ligation status
CPT/HCPCS: 36415; 80048; 84484; 85025; 93005; 93010; 99283

== ENCOUNTER 2019-05-03 15:32 | Emergency (ER) | payer SELFPAY ==
[2019-05-03 15:50] VITALS: BP 137/91
== END 2019-05-03 16:00 | disposition left against medical advice (07) ==
LOC: ED 15:32
DX: R07.89 Other chest pain (principal); I10 Essential (primary) hypertension; Z53.21 Procedure and treatment not carried out due to patient leaving prior to being seen by health care provider

== ENCOUNTER 2020-11-01 16:33 | Emergency (ER) | payer SELFPAY ==
[2020-11-01 16:43] VITALS: BP 132/82
--- NOTE | 2020-11-02 10:41 | Electrocardiograph Report ---
[facility] Test Date: 2020-11-01 Test Time: 16:40:27 Pat Name: ALFONSO RANGEL Department: Room: Gender: F [place] Inspector: NIK : 1985 Requested By: RUT TOMLIN Order Number: [id number] Reading MD: Deonna Crump Measurements Intervals Happy Rate: 77 P: 53 IL: 166 QRS: 41 QRSD: 78 T: 37 QT: 390 QTc: 442 Interpretive Statements Sinus rhythm No previous ECG available for comparison Electronically Signed On 11-02-2020 10:40:48 EDT by Deonna Crump
== END 2020-11-01 21:00 | disposition left against medical advice (07) ==
LOC: ED 16:33
DX: R07.89 Other chest pain (principal); Z53.21 Procedure and treatment not carried out due to patient leaving prior to being seen by health care provider
CPT/HCPCS: 93005